=== PATIENT | female | born 1965 | race Caucasian/White ===

== ENCOUNTER 2017-04-14 07:23 | Day surgery (SDC) | payer OTHER ==
[2017-04-11 11:43] VITALS: BMI 22.2
[2017-04-14] VITALS (29 sets, daily range): BP systolic 80–126; BP diastolic 50–89; PULSE 54–80; RESP 0–28; Ht 157.5 cm; Wt 53.0 kg
[~2017-04-14] VITALS: Ht 157.5 cm; Wt 53.0 kg
[~2017-04-14 07:23] MED LIST: CEFAZOLIN 2 GM/50 ML (PMX) 50 ML IVPB ONE; SOD CHLORIDE 0.9% 1,000 ML IV SCH
[2017-04-14] MEDS ORDERED: AMLO-218 PO (08:15)
[2017-04-14] MEDS ORDERED: METO25TA7 PO (08:15)
--- NOTE | 2017-04-14 08:27 | RADRPT ---
PROCEDURE: XR Chest. CLINICAL INDICATION: Preoperative TECHNIQUE: Single frontal view of the chest was obtained COMPARISON: None FINDINGS: The heart and mediastinum are within normal limits. The lungs are clear. There is no pleural effusion or pneumothorax. RPTAT: AA IMPRESSION: No acute disease. .Vazquez Bull MD, Date Time Electronically viewed and signed by .Vazquez Bull MD, on 04/14/2017 08:27 .S/
[2017-04-14] MEDS ORDERED: FENTAnyl 50 MCG/ML VIAL ONE (08:58)
[2017-04-14] MEDS ORDERED: CEFAZOLIN 1 GM INJ ONE (08:58)
[2017-04-14] MEDS ORDERED: ROCURONIUM 50 MG INJ ONE (08:58)
[2017-04-14] MEDS ORDERED: MIDAZOLAM 1 MG/ML 2 ML INJ ONE (08:58)
[2017-04-14] MEDS ORDERED: PROPOFOL 20 ML ONE (08:58)
[2017-04-14] MEDS ORDERED: hydrALAzine 20 MG INJ IV PRN (09:30)
[2017-04-14] MEDS ORDERED: BUPIVACAINE 0.25% (MPF) 30 ML INJ INJ ONE (09:30)
[2017-04-14] MEDS ORDERED: MEPERIDINE 25 MG INJ IV PRN (09:30)
[2017-04-14] MEDS ORDERED: OXYCODONE/ACETAMINOPHEN (5/325) TAB PO PRN ×2 (09:30)
[2017-04-14] MEDS ORDERED: EPHEDrine SULFATE 50 MG/5 ML SYG IV PRN (09:30)
[2017-04-14] MEDS ORDERED: DIPHENHYDRAMINE 50 MG INJ IV PRN (09:30)
[2017-04-14] MEDS ORDERED: HYDROmorphONE (0.2 MG/ML) 10ML SYG IV PRN ×3 (09:30)
[2017-04-14] MEDS ORDERED: LABETALOL HCL 20MG INJ IV PRN (09:30)
[2017-04-14] MEDS ORDERED: FENTAnyl 50 MCG/ML VIAL IV PRN ×3 (09:30)
[2017-04-14] MEDS ORDERED: BUPIVACAINE 0.25% (MPF) 30 ML INJ ONE (09:34)
[2017-04-14] MEDS ORDERED: ACETAMINOPHEN 1000MG/100ML IV 100 ML ONE (09:58)
[2017-04-14] MEDS ORDERED: SUGAMMADEX SODIUM 200 MG/2 ML VIAL IV ONE (09:58)
[2017-04-14] MEDS ORDERED: METOCLOPRAMIDE 10 MG INJ ONE (09:58)
[2017-04-14] MEDS ORDERED: ONDANSETRON 4 MG INJ ONE (09:58)
[2017-04-14] MEDS ORDERED: KETOROLAC 30 MG INJ ONE (09:58)
[2017-04-14] MEDS ORDERED: DEXAMETHASONE 4 MG/ML 1 ML INJ ONE (09:58)
--- NOTE | 2017-04-14 10:29 | OPR ---
Date/Time of Note Date/Time of Note DATE: 04/14/17 TIME: 10:22 Operative Report Procedure Date: Apr 14, 2017 Preoperative Diagnosis internal and externa hemorrhoids perianal mass anal fissure Postoperative Diagnosis same Operation Performed 1. proctoplasty for prolapse of mucosal membrane cpt code 66525 2. ligation of multiple internal hemorrhoids cpt code 04974 3. anterior perianal mass excision 1 cm mass 4. posterior anal fissurectomy 1 cm 5. rigid sigmoidoscopy 6. therapeutic injection of subcutaneous marcaine cpt code 02301 Surgeon: Ana OLSON Anesthesia Type: general Estimated Blood Loss: 0 - 10 ml's Specimens anterior perianal mass posterior anal fissure Grafts/Implants: none Complications: no Indications This is a 51-year-old female with a anterior perianal mass and a posterior anal fissure and internal/external complex hemorrhoids. She required surgical repair. Risks alternatives benefits and percent were discussed the patient. Patient expressed understanding consents to the operation. Procedure Description Patient is taken to the OR and prepped and draped in usual sterile fashion. Surgical timeout is performed. IV antibiotics are given. Rigid sigmoidoscopy was performed. There is no evidence of any masses or lesions. Prep was fair. Attention was then paid to the internal/external hemorrhoids. Using the THC device multiple [id number] 2-0 Vicryl suture is used to ligate the internal hemorrhoidal artery in a circular fashion all around anal mucosa. This is performed in multiple areas performed the multiple internal hemorrhoidal artery ligation. The proctoplasty was then performed by running the 2-0 Vicryl from proximal all the way down distally to the dentate line. This is also performed in multiple region circumferentially around the anal mucosa. Attention was then paid to the anterior perianal mass. This is resected using 15 blade and hand-held cautery for hemostasis. The posterior anal fissure was then addressed with a 15 blade and hand-held cautery and is excised. Both the wounds are cauterized until hemostasis established. The perianal mucosa is then injected with subcutaneous Marcaine and a circular fashion. There is good hemostasis. The anal canal was checked for patency manually and there is no evidence of any obstruction or stenosis. Dry dressings were applied. Ana OLSON Apr 14, 2017 10:29
[2017-04-14] MEDS ORDERED: HYDROCODONE/APAP (5/325) TAB PO ONE (10:30)
[2017-04-14] MEDS ORDERED: DOCUSATE SODIUM 250 MG CAP PO ONE (10:30)
[2017-04-14] MEDS: ONDANSETRON 4 MG INJ IV PRN ×2 (10:52→12:16)
--- NOTE | 2017-04-14 16:33 | RADRPT ---
Vent Rate: 56 bpm RR Interval: 0 msec VA Interval: 114 msec QRS Duration: 72 msec QT Interval: 460 msec QTC Interval: 443 msec P-R-T [place]: 77 - 60 - 35 degrees Sinus bradycardia Cannot rule out Anterior infarct , age undetermined Abnormal ECG Electronically Signed By: Tyron Sykes [id number]
== END 2017-04-14 16:20 | disposition home or self-care (01) ==
LOC: SDS 07:23
PROVIDERS: ATTEND Surgery
DX: K64.9 Unspecified hemorrhoids (principal); K62.0 Anal polyp; K60.2 Anal fissure, unspecified; K64.4 Residual hemorrhoidal skin tags; K64.8 Other hemorrhoids; I10 Essential (primary) hypertension
CPT/HCPCS: 45330; 46261; 71010; 84703; 88304; 88307; 93005; J0131; J0690; J1100; J1885; J2250; J2405; J2765; J3010; Z7512; Z7610

== ENCOUNTER 2017-04-17 09:54 | Inpatient (IN) | payer OTHER ==
[2017-04-17] VITALS (18 sets, daily range): BP systolic 104–134; BP diastolic 63–87; PULSE 83–104; RESP 11–27; TEMP 97.6; Ht 154.9 cm; Wt 57.9 kg
[~2017-04-17] VITALS: Ht 154.9 cm; Wt 57.9 kg
[~2017-04-17 09:54] MED LIST changes: +AMLO-218 PO; -CEFAZOLIN 2 GM/50 ML (PMX) 50 ML IVPB ONE; +METO25TA7 PO; -SOD CHLORIDE 0.9% 1,000 ML IV SCH
--- NOTE | 2017-04-17 10:33 | ERD ---
ER Documentation Chief Complaint Date/Time DATE: 04/17/17 TIME: 10:33 Chief Complaint Complains of post pain since friday HPI 51-year-old woman complains of increasing lower abdominal pain and cramping states her last bowel movement was about 3 days ago on Friday ROS All systems reviewed and are negative except as per history of present illness. Medications Home Meds Reported Medications Metoprolol Succinate* (Toprol XL*) 25 Mg Tab.sr.24h, 25 MG PO QPM, #30 TAB 04/14/17 Amlodipine Besylate* (Norvasc*) 10 Mg Tablet, 10 MG PO DAILY, TAB 04/14/17 Allergies Allergies: Coded Allergies: No Known Allergy (Unverified , 04/17/17) PMhx/Soc proctoplasty, recent internal hemorrhoid and perianal mass excision, status post rigid sigmoidoscopy and anal fissurectomy History of Surgery: Yes (l shoulder, hysterectomy) Anesthesia Reaction: No Hx Neurological Disorder: No Hx Respiratory Disorders: No Hx Cardiac Disorders: No Hx Psychiatric Problems: No Hx Miscellaneous Medical Probl: No Hx Alcohol Use: No Hx Substance Use: No Hx Tobacco Use: No Smoking Status: Never smoker FmHx Family History: No diabetes Physical Exam Vitals Vital Signs Date Time Temp Pulse Resp B/P Pulse Ox O2 Delivery O2 Flow Rate FiO2 04/17/17 12:00 83 12 116/82 100 Room Air 2.0 Nasal Cannula 04/17/17 10:00 97.6 82 29 148/107 100 Room Air 04/17/17 09:57 98.4 126 20 143/94 99 Physical Exam GENERAL: Well-developed, well-nourished, in moderate discomfort. HEENT: Moist mucous membranes, pink conjunctiva, no cervical spine tenderness or step-off deformities, no goiter, no jaundice or icterus, extraocular movements intact without pain. No submandibular induration, and no pharyngeal erythema NEURO: Alert and oriented 3, cranial nerves II through XII intact bilaterally, pupils equal round reactive to light, no focal deficits or facial asymmetry, sensation intact distally Strength 5/5 in upper and lower extremities bilaterally CARDIAC: Regular rate and rhythm, no murmurs rubs or gallops LUNGS: Clear bilaterally no wheezing crackles or stridor ABDOMEN: Lower abdominal distention, lower abdominal tenderness to touch no guarding, no rebound, lower abdominal mass palpated. EXTREMITIES: No clubbing cyanosis or edema, calves are bilaterally symmetrical, no Homans sign, no popliteal cord sign. Distal pulses equal and bilateral PSYCH: Normal affect without agitation or irritability Result Diagram: 04/17/17 1000 04/17/17 1000 Results 24 hrs Laboratory Tests Test 04/17/17 10:00 White Blood Count 11.010^3/ul Red Blood Count 4.4310^6/ul Hemoglobin 13.4g/dl Hematocrit 39.9% Mean Corpuscular Volume 90.1fl Mean Corpuscular Hemoglobin 30.2pg Mean Corpuscular Hemoglobin Concent 33.6g/dl Red Cell Distribution Width 12.9% Platelet Count 67175^3/UL Mean Platelet Volume 11.5fl Neutrophils % 76.6% Lymphocytes % 14.5% Monocytes % 7.4% Eosinophils % 1.1% Basophils % 0.2% Nucleated Red Blood Cells % 0.0/100WBC Neutrophils # (Manual) 8.510^3/ul Lymphocytes # 1.610^3/ul Monocytes # 0.810^3/ul Eosinophils # 0.110^3/ul Basophils # 0.010^3/ul Nucleated Red Blood Cells # 0.010^3/ul Prothrombin Time 13.2Sec Prothrombin Time Ratio 1.0 INR International Normalized Ratio 1.00 Sodium Level 151mmol/L Potassium Level 3.5mmol/L Chloride Level 100mmol/L Carbon Dioxide Level 26mmol/L Anion Gap 29 Blood Urea Nitrogen 9mg/dl Creatinine 1.22mg/dl Glucose Level 96mg/dl Calcium Level 9.8mg/dl Total Bilirubin 0.7mg/dl Direct Bilirubin 0.00mg/dl Indirect Bilirubin 0.7mg/dl Aspartate Amino Transf (AST/SGOT) 25IU/L Alanine Aminotransferase (ALT/SGPT) 15IU/L Alkaline Phosphatase 102IU/L Total Protein 8.7g/dl Albumin 4.6g/dl Globulin 4.10g/dl Albumin/Globulin Ratio 1.12 Lipase 12U/L Current Medications Medications (Trade) Dose Ordered Sig/Herber Route PRN Reason Start Time Stop Time Status Last Admin Dose Admin Sodium Chloride (NS) 1,000 ml @ 1,000 mls/hr Q1H STAT IV 04/17/17 10:38 04/17/17 11:37 DC 8/31/17 10:53 Hydromorphone HCl (Dilaudid) 1 mg ONCE STAT IV 04/17/17 10:38 04/17/17 10:39 DC 04/17/17 10:53 Ondansetron HCl (Zofran Inj) 4 mg ONCE STAT IV 04/17/17 10:38 04/17/17 10:39 DC 04/17/17 10:53 Polyethylene Glycol/ Electrolytes (Golytely) 4,000 ml ONCE ONCE PO 04/17/17 13:00 04/17/17 13:01 DC 04/17/17 13:37 Procedures/MDM IV line was established patient was placed on patient monitor rhythm strip revealed a sinus rhythm at about 80 bpm with upright P and T waves. Patient was afebrile. I administered 1 L normal saline intravenously, hydromorphone 1 mg IV and Zofran 4 mg IV with control of her pain. CT scan of the abdomen Patient received 4 L of GoLYTELY, no bowel movement yet. Patient will be admitted to Dr. Lucas, pending OR decompactionand pelvis Revealed pseudoobstruction with massive stool impaction in the distal colon. No acute infectious pathology or perforation noted. Please refer to radiologist dictation for full report. I spoke to the patient's surgeon Dr. Lucas regarding the patient's CT scan findings and symptomatology, he recommended GoLYTELY, if patient has a bowel movement she can be managed as an outpatient although if she remains constipated /obstipated she will go to the OR. CBC and electrolytes were normal, liver function tests normal, coagulation profile normal. Patient was given 4 L of GoLYTELY and remains constipated, she will be admitted to Dr. Lucas to undergo OR decompaction Departure Diagnosis: Primary Impression: Large bowel obstruction Condition: DANIEL Jackson MD Apr 17, 2017 10:33
[2017-04-17] MEDS ORDERED: SOD CHLORIDE 0.9% 1,000 ML IV STA (10:38)
[2017-04-17] MEDS ORDERED: ONDANSETRON 4 MG INJ IV STA (10:38)
[2017-04-17] MEDS ORDERED: HYDROmorphONE 1 MG/ML SYG IV STA ×2 (10:38→14:57)
[2017-04-17 11:50] LABS: BASOPHILS % 0.2 % (0.0-2.0); EOSINOPHILS # 0.1 10^3/ul (0.0-0.5); EOSINOPHILS % 1.1 % (0.0-7.0); HEMATOCRIT 39.9 % (37.0-47.0); HEMOGLOBIN 13.4 g/dl (12.0-16.0); LYMPHOCYTES # 1.6 10^3/ul (0.8-2.9); LYMPHOCYTES % 14.5 % (15.0-51.0); MEAN CORPUSCULAR HEMOGLOBIN 30.2 pg (29.0-33.0); MEAN CORPUSCULAR HGB CONC 33.6 g/dl (32.0-37.0); MEAN CORPUSCULAR VOLUME 90.1 fl (82.0-101.0); MEAN PLATELET VOLUME 11.5 fl (7.4-10.4); MONOCYTE # 0.8 10^3/ul (0.3-0.9); MONOCYTES % 7.4 % (0.0-11.0); NEUTROPHILS % 76.6 % (39.0-77.0); PLATELET COUNT 247 10^3/UL (140-415); RED BLOOD COUNT 4.43 10^6/ul (4.20-5.40); RED CELL DISTRIBUTION WIDTH 12.9 % (11.5-14.5)
--- NOTE | 2017-04-17 11:52 | RADRPT ---
PROCEDURE: CT Abdomen and Pelvis without contrast. CLINICAL INDICATION: Abdominal pelvic pain and distension. Bleeding. TECHNIQUE: CT scan of the abdomen and pelvis without contrast was performed on a multidetector hig h-resolution CT scanner. The patient was scanned without intravenous contrast. Coronal and sagittal reformatted images were obtained from the axial source images. Images were reviewed on a high-resol SLID PACS workstation. The total exam CTDI equals 5.34 mGy and the total exam DLP equals 301.86 mGy -cm. One or more of the following dose reduction techniques were used: - Automated exposure control. - Adjustment of the mA and/or kV according to patient size. - Use of iterative reconstruction technique. COMPARISON: None. FINDINGS: CT abdomen: The lung bases are clear. The heart size is normal, without pericardial thickening or effusion. Th e liver is normal in size and density without focal mass or intrahepatic biliary dilatation. The sp merline is normal in size and homogeneous in density. The stomach is partially collapsed, but is gross ly unremarkable. The pancreas as visualized is normal. The gallbladder and biliary tree are unrema rkable and there is no evidence for biliary dilatation. The adrenal glands are symmetric and normal . The kidneys are symmetrically unremarkable as well. No renal calculus or obstructive uropathy or mass lesion is seen. The aorta is of normal caliber. Aortic vascular calcifications are present. There is no retroperit delgadillo lymphadenopathy. The leonora hepatis region is clear. Severe distension and dilatation of all of the loops of colon is identified with a large amount of fecal material and stool throughout. CT pelvis: The small bowel loops situated within the pelvis are unremarkable. The pelvic organs are normal. T he pelvic sidewalls and inguinal regions are clear. The sigmoid colon and rectum are remarkable for severe colonic constipation throughout the sigmoid colon and rectum. A very large amount of stool seen within the rectal vault consistent with high-grade constipation/obstipation. This is causing a n obstruction like pattern (pseudo-obstruction) secondary to the high-grade constipation. Rectal wa ll thickening with surrounding edema is seen consistent with significant stercoral proctitis. No mas s or adenopathy is seen. Minimal layering free fluid is present, with edema in the lower posterior p resacral space. No acute inflammation is identified at this time. The surrounding osseous structures are remarkable for degenerative spondylosis of the spine. No ost eolytic or osteoblastic lesion is detected. IMPRESSION: 1. Massive stool retention within the lower sigmoid colon and rectum with high-grade constipation/o bstipation and associated stercoral proctitis. 2. Proximal "pseudo-obstruction" of the colon secondary to the high-grade distal colonic constipati on and stercoral proctitis. RPTAT: HMJB .Jay Madera MD, Date Time Electronically viewed and signed by .Jay Madera MD, on 04/17/2017 11:52 .B/
[2017-04-17 12:42] LABS: PROTIME 13.2 Sec (12.2-14.2)
[2017-04-17 12:45] LABS: ALBUMIN 4.6 g/dl (3.3-4.9); ALBUMIN/GLOBULIN RATIO 1.12; BILIRUBIN,INDIRECT 0.7 mg/dl (0-1.1); BILIRUBIN,TOTAL 0.7 mg/dl (0.2-1.3); CALCIUM 9.8 mg/dl (8.4-10.2); CREATININE 1.22 mg/dl (0.44-1.00); POTASSIUM 3.5 mmol/L (3.5-5.1); TOTAL PROTEIN 8.7 g/dl (6.1-8.1)
[2017-04-17] MEDS ORDERED: PEG/ELECTROLYTES 4L BTL PO ONE (13:00)
--- NOTE | 2017-04-17 16:29 | HP ---
Date/Time of Note Date/Time of Note DATE: 04/17/17 TIME: 16:24 Assessment/Plan VTE Prophylaxis VTE Prophylaxis Intervention: ambulation, SCD's Lines/Catheters IV [facility]from [facility] Saline Lock Assessment/Plan Chief Complaint/Hosp Course 51-year-old female presenting with obstipation after hemorrhoidal surgical intervention. She had a course of GoLYTELY without improvement in the ER. She will be taken to the OR for manual disimpaction and anal dilatation. Problems: Assessment/Plan Plan is for operative manual disimpaction and dilatation. HPI/ROS Admit Date/Time Admit Date/Time Hx of Present Illness This is a 51-year-old female with increasing abdominal pain and cramping. She has been experiencing obstipation for the past 3 days. She underwent hemorrhoidal surgery approximately 3 days ago. She has been taking pain medication however she has not had a good bowel movement recently. CT scan showed obstipation with stool in the colon. In the ER she had GoLYTELY and did not have any major bowel movements. General surgery was consulted for manual disimpaction. ROS All review of systems are negative except for what was mentioned before in the HPI. PMH/Family/Social Past Surgical History proctoplasty recent internal hemorrhoid and perianal mass excision and rigid endoscopy and anal fissurectomy Family History Significant Family History: no pertinent family hx Social History Alcohol Use: none Smoking Status: Never smoker Drug Use: none Exam/Review of Systems Vital Signs Vitals Vital Signs Date Time Temp Pulse Resp B/P Pulse Ox O2 Delivery O2 Flow Rate FiO2 04/17/17 12:00 83 12 116/82 100 Room Air 2.0 Nasal Cannula 04/17/17 10:00 97.6 Exam Constitutional: alert, oriented Psych: nl mood/affect, no complaints Head: atraumatic, normocephalic Eyes: EOMI, nl conjunctiva, nl lids ENMT: nl external ears & nose, nl lips & teeth, nl nasal mucosa & septum Neck: non-tender, supple Respiratory: clear to auscultation Cardiovascular: regular rate and rhythm Gastrointestinal: distended Extremities: normal pulses Labs Result Diagram: 04/17/17 1000 04/17/17 1000 Ana OLSON Apr 17, 2017 16:29
[2017-04-17] MEDS ORDERED: LIDOCAINE 2% (SDV) 5 ML INJ ONE (17:53)
[2017-04-17] MEDS ORDERED: MIDAZOLAM 1 MG/ML 2 ML INJ ONE (17:53)
[2017-04-17] MEDS ORDERED: SUCCINYLCHOLINE CHLORIDE 100 MG/5 ML SYG IV ONE (17:53)
[2017-04-17] MEDS ORDERED: PROPOFOL 20 ML ONE (17:53)
[2017-04-17] MEDS ORDERED: FENTAnyl 50 MCG/ML VIAL ONE (17:58)
[2017-04-17] MEDS ORDERED: PHENYLephrine (100 MCG/ML) 5ML SYG ONE (18:06)
[2017-04-17] MEDS ORDERED: metroNIDAZOLE 500 MG/NS (PMX) 100 ML IVPB ONE (18:23)
[2017-04-17] MEDS ORDERED: CEFAZOLIN 1 GM INJ ONE (18:23)
[2017-04-17] MEDS ORDERED: FAMOTIDINE 20 MG INJ ONE (18:24)
[2017-04-17] MEDS ORDERED: ONDANSETRON 4 MG INJ ONE (18:24)
[2017-04-17] MEDS ORDERED: DEXAMETHASONE 4 MG/ML 1 ML INJ ONE (18:24)
--- NOTE | 2017-04-17 18:25 | OPR ---
Date/Time of Note Date/Time of Note DATE: 04/17/17 TIME: 18:23 Operative Report Procedure Date: Apr 17, 2017 Preoperative Diagnosis obstipation and nausea and vomiting Postoperative Diagnosis same Operation Performed anal dilation fecal disimpaction rigid sigmoidoscopy Surgeon: Ana OLSON Anesthesia Type: general Estimated Blood Loss: 10 - 50 ml's Specimen: none Grafts/Implants: none Complications: no Indications This is a 51-year-old female who underwent recent hemorrhoidal surgery. She has not had a bowel movement and has obstipation. She is admitted to the hospital for pseudoobstruction. Patient is taken to the OR for fecal disimpaction anal dilation rigid proctoscopy. Risks alternatives benefits and percent were discussed the patient patient expresses understanding since the operation. Procedure Description Something to the OR in usual sterile fashion surgical time was performed IV antibiotics given. Rigid proctoscopy is performed. There is no evidence of any stenosis or any other masses or lesions. Anal dilatation was performed manually with 2 fingers and fecal disimpaction was performed with Cummings retractors. Approximately 300 cc of stool was evacuated. There is good hemostasis. The operation was concluded. Ana OLSON Apr 17, 2017 18:25
[2017-04-17] MEDS ORDERED: HYDROmorphONE (0.2 MG/ML) 10ML SYG IV PRN (19:30)
[2017-04-17] MEDS ORDERED: ONDANSETRON 4 MG INJ IV PRN (19:30)
[2017-04-17] MEDS ORDERED: PROCHLORPERAZINE 10 MG INJ IV PRN (19:30)
[2017-04-17] MEDS ORDERED: FENTAnyl 50 MCG/ML VIAL IV PRN (19:30)
[2017-04-17] MEDS ORDERED: DIPHENHYDRAMINE 50 MG INJ IV PRN (19:30)
[2017-04-17 20:07] LABS: ABNORMAL IP MESSAGE 1; HEMATOCRIT 36.9 % (37.0-47.0); HEMOGLOBIN 12.3 g/dl (12.0-16.0); MEAN CORPUSCULAR HEMOGLOBIN 31.1 pg (29.0-33.0); MEAN CORPUSCULAR HGB CONC 33.3 g/dl (32.0-37.0); MEAN CORPUSCULAR VOLUME 93.2 fl (82.0-101.0); MEAN PLATELET VOLUME 10.4 fl (7.4-10.4); PLATELET COUNT 206 10^3/UL (140-415); RED BLOOD COUNT 3.96 10^6/ul (4.20-5.40); RED CELL DISTRIBUTION WIDTH 13.1 % (11.5-14.5); WHITE BLOOD COUNT 5.9 10^3/ul (4.8-10.8)
[2017-04-17 20:35] LABS: ALBUMIN 3.8 g/dl (3.3-4.9); ALBUMIN/GLOBULIN RATIO 1.08; BILIRUBIN,INDIRECT 0.6 mg/dl (0-1.1); BILIRUBIN,TOTAL 0.6 mg/dl (0.2-1.3); CREATININE 0.79 mg/dl (0.44-1.00); POTASSIUM 3.3 mmol/L (3.5-5.1); TOTAL PROTEIN 7.3 g/dl (6.1-8.1)
[2017-04-17 20:48] LABS: POSITIVE DIFF @See below
[2017-04-17] MEDS: LACTATED RINGER'S 1,000 ML IV SCH (20:55)
[2017-04-17] MEDS: AMPICILLIN/SULB 3 GM/NS (PMX) 100 ML IVPB SCH (20:56)
[2017-04-17] MEDS: metroNIDAZOLE 500 MG/NS (PMX) 100 ML IVPB SCH (21:00)
[2017-04-17 21:34] LABS: MONOCYTES % (M) 3 % (0-11); PLATELET ESTIMATE NORMAL
[2017-04-17] MEDS ORDERED: POTASSIUM CHLORIDE 250 ML IVPB ONE (23:00)
[2017-04-17] MEDS: morphine 2 MG INJ IV PRN (23:22)
[2017-04-18 02:00] VITALS: BP 112/66; RESP 85
[2017-04-18] MEDS: metroNIDAZOLE 500 MG/NS (PMX) 100 ML IVPB SCH ×3 (02:30→11:42)
--- NOTE | 2017-04-18 03:12 | HP ---
DATE OF ADMISSION: 04/17/2017 HISTORY OF PRESENT ILLNESS: The patient is a 51-year-old female who was seen by Dr. Austin Lucas a few days ago for symptomatic hemorrhoid. The patient underwent hemorrhoidectomy and was sent home. The patient was given prescription for [place]; however, the patient reported that she was only taking Motrin upon discharge due to risk of constipation. The patient reported that she had constipation issues even prior to her hemorrhoid surgery. The patient chief came to ER today with obstipation. The patient was given GoLYTELY in the ER, however, did not have any bowel movement. The patient had increasing abdominal pain and cramping and, therefore, she was taken to the OR by Dr. Lucas who had performed hemorrhoidectomy recently. The underwent anal dilatation, fecal disimpaction, and rigid sigmoidoscopy and is being admitted for further care. The patient denied any chest pain. The patient reported the abdominal pain is better, although not completely resolved. The patient did not have any chest pain or shortness of breath. No history of cough. No history of leg pain or weakness in any extremities. PAST SURGICAL HISTORY: As stated above. The patient had recent hemorrhoid surgery and also anal fissurectomy. The patient is status post left shoulder rotator cuff tear repair. Also has history of hysterectomy. ALLERGIES: NONE. MEDICATIONS: Prior to admission Motrin. FAMILY HISTORY: Noncontributory. PHYSICAL EXAMINATION: GENERAL APPEARANCE: The patient is conscious, awake, and alert. VITAL SIGNS: Vital signs in the ER stable. Blood pressure 116/52, pulse 86, respirations 12, temperature 97.6, O2 sat 100 percent on 2 L nasal cannula. HEENT: No eye discharge or redness. Extraocular movements intact. Oropharynx clear. NECK: Supple. No mass or thyromegaly. CHEST: Fairly clear. CARDIOVASCULAR: S1, S2 normal. No murmur. ABDOMEN: Soft, mildly distended and tender. EXTREMITIES: No leg edema. Pedal pulses palpable. SKIN: Without acute rash. NEUROLOGIC: The patient is awake, alert, fairly oriented. LABORATORY DATA: WBC 11, hemoglobin 15.4, platelets 247. Sodium 151, potassium 3.5, BUN 9, creatinine 1.2. IMPRESSION: Recent hemorrhoid surgery and anal fissurectomy. The patient presented with abdominal pain and obstipation, status post anal dilatation, fecal disimpaction, and rigid sigmoidoscopy. PLAN: The patient admitted on medical floor. The patient will start on clear liquid diet, which will be advanced as tolerated. The patient will be given IV fluid. The reason for hyponatremia unknown. The patient also has a creatinine of 1.2. Her previous baseline renal functions are not known. We will give a trial of IV fluids and will use SCD for DVT prophylaxis. Continue pain control and we will do follow up labs in the morning. Plan of care discussed with the patient's and Dr. Austin Lucas. If the patient continues to do well, she will be discharged home tomorrow. Dictated By: Jesus Nickerson MD /dom/patrice /Document#: [id number]
[2017-04-18] MEDS: LACTATED RINGER'S 1,000 ML IV SCH ×2 (04:21→14:21)
[2017-04-18] MEDS: morphine 2 MG INJ IV PRN ×4 (04:56→17:47)
[2017-04-18 05:45] LABS: ABNORMAL IP MESSAGE 1; BASOPHILS % 0.2 % (0.0-2.0); HEMATOCRIT 32.2 % (37.0-47.0); HEMOGLOBIN 10.8 g/dl (12.0-16.0); LYMPHOCYTES # 0.6 10^3/ul (0.8-2.9); LYMPHOCYTES % 4.9 % (15.0-51.0); MEAN CORPUSCULAR HEMOGLOBIN 30.9 pg (29.0-33.0); MEAN CORPUSCULAR HGB CONC 33.5 g/dl (32.0-37.0); MEAN PLATELET VOLUME 11.1 fl (7.4-10.4); MONOCYTE # 0.7 10^3/ul (0.3-0.9); MONOCYTES % 6.1 % (0.0-11.0); NEUTROPHILS % 88.5 % (39.0-77.0); PLATELET COUNT 185 10^3/UL (140-415); RED CELL DISTRIBUTION WIDTH 13.1 % (11.5-14.5); WHITE BLOOD COUNT 11.5 10^3/ul (4.8-10.8)
[2017-04-18 05:49] LABS: POSITIVE DIFF @See below
[2017-04-18 06:02] LABS: ADD UMIC YES; UR ASCORBIC ACID NEGATIVE (NEGATIVE); UR BILIRUBIN (Dip) NEGATIVE (NEGATIVE); UR BLOOD (Dip) NEGATIVE (NEGATIVE); UR CLARITY CLEAR (CLEAR); UR COLOR YELLOW (YELLOW); UR GLUCOSE (Dip) NEGATIVE (NEGATIVE); UR KETONES (Dip) 1+ mg/dL (NEGATIVE); UR LEUKOCYTE ESTERASE (Dip) NEGATIVE Leu/ul (NEGATIVE); UR NITRITE (Dip) NEGATIVE (NEGATIVE); UR RBC 3 /HPF (0-5); UR SPECIFIC GRAVITY (Dip) 1.015 (1.003-1.030); UR TOTAL PROTEIN (Dip) 1+ mg/dl (NEGATIVE); UR UROBILINOGEN (Dip) NEGATIVE (NEGATIVE)
[2017-04-18 06:26] LABS: ALBUMIN 3.3 g/dl (3.3-4.9); ALBUMIN/GLOBULIN RATIO 1.13; BILIRUBIN,INDIRECT 0.7 mg/dl (0-1.1); BILIRUBIN,TOTAL 0.7 mg/dl (0.2-1.3); CREATININE 0.67 mg/dl (0.44-1.00); TOTAL PROTEIN 6.2 g/dl (6.1-8.1)
[2017-04-18] MEDS: AMPICILLIN/SULB 3 GM/NS (PMX) 100 ML IVPB SCH ×4 (06:26→17:16)
[2017-04-18 08:31] VITALS: BP 139/77; RESP 22
[2017-04-18] MEDS: AMLODIPINE 10 MG TAB PO SCH (08:40)
--- NOTE | 2017-04-18 10:25 | PN ---
Date/Time of Note Date/Time of Note DATE: 04/18/17 TIME: 10:24 Assessment/Plan VTE Prophylaxis VTE Prophylaxis Intervention: SCD's Lines/Catheters IV Catheter Type (from Nrs): Peripheral IV Assessment/Plan Chief Complaint/Hosp Course 51-year-old female presenting with obstipation after hemorrhoidal surgical intervention. She had a course of GoLYTELY without improvement in the ER. She will be taken to the OR for manual disimpaction and anal dilatation. Problems: Assessment/Plan doing well and had bm ok to dc home today if patient ok Subjective 24 Hr Interval Summary Free Text/Dictation patient with fecal impaction disimpacted yesterday and had additional bm Exam/Review of Systems Vital Signs Vitals Vital Signs Date Time Temp Pulse Resp B/P Pulse Ox O2 Delivery O2 Flow Rate FiO2 04/18/17 08:31 97.4 95 22 139/77 98 04/17/17 21:00 Nasal Cannula 04/17/17 16:17 2.0 Intake and Output 04/17/17 04/17/17 04/18/17 15:00 23:00 07:00 Intake Total 600 ml 1350 ml Output Total 0 ml 900 ml Balance 600 ml 450 ml Exam abdominal exam benign, no peritoneal signs Results Result Diagram: 04/18/1751604/18/17516 Results 24 hrs Laboratory Tests Test 04/17/17 19:52 04/17/17 19:54 04/18/17 03:35 04/18/17 05:17 White Blood Count 5.9 # 11.5 #H Red Blood Count 3.96 L 3.50 L Hemoglobin 12.3 10.8 L Hematocrit 36.9 L 32.2 L Mean Corpuscular Volume 93.2 92.0 Mean Corpuscular Hemoglobin 31.1 30.9 Mean Corpuscular Hemoglobin Concent 33.3 33.5 Red Cell Distribution Width 13.1 13.1 Platelet Count 206 185 Mean Platelet Volume 10.4 11.1 H Neutrophils % 88.5 H Segmented Neutrophils % (Manual) 60 Band Neutrophils % (Manual) 32 H Lymphocytes % 4.9 L Lymphocytes % (Manual) 5 L Monocytes % 6.1 Monocytes % (Manual) 3 Eosinophils % 0.0 Basophils % 0.2 Nucleated Red Blood Cells % 0.0 0.0 Neutrophils # (Manual) 3.6 10.1 H Band Neutrophils # 1.8 H Absolute Lymphocytes (Manual) 0.2 L Lymphocytes # 0.6 L Monocytes # 0.7 Absolute Monocytes (Manual) 0.1 L Eosinophils # 0.0 Basophils # 0.0 Nucleated Red Blood Cells # 0.0 Platelet Estimate NORMAL Sodium Level 146 H 140 Potassium Level 3.3 L 4.0 Chloride Level 101 104 Carbon Dioxide Level 28 29 Anion Gap 20 #H 11 # Blood Urea Nitrogen 9 8 Creatinine 0.79 0.67 Glucose Level 125 116 Calcium Level 8.0 L 8.0 L Total Bilirubin 0.6 0.7 Direct Bilirubin 0.00 0.00 Indirect Bilirubin 0.6 0.7 Aspartate Amino Transf (AST/SGOT) 42 33 Alanine Aminotransferase (ALT/SGPT) 27 31 Alkaline Phosphatase 74 60 Total Protein 7.3 # 6.2 # Albumin 3.8 3.3 Globulin 3.50 H 2.90 Albumin/Globulin Ratio 1.08 1.13 Urine Color YELLOW Urine Clarity CLEAR Urine pH 6.0 Urine Specific [place] 1.015 Urine Ketones 1+ H Urine Nitrite NEGATIVE Urine Bilirubin NEGATIVE Urine Urobilinogen NEGATIVE Urine Leukocyte Esterase NEGATIVE Urine Microscopic RBC 3 Urine Microscopic WBC 11 H Urine Hemoglobin NEGATIVE Urine Glucose NEGATIVE Urine Total Protein 1+ H Medications Medications Current Medications Ampicillin Sodium/ Sulbactam Sodium 100 ml @ 200 mls/hr Q6 IVPB Last administered on 04/18/17 06:26; Admin Dose 200 MLS/HR; Start 04/17/17 at 20:00 Metronidazole (Flagyl 500 Mg (Pmx)) 100 ml @ 100 mls/hr Q8H IVPB Last administered on 04/18/17 05:39; Admin Dose 100 MLS/HR; Start 04/17/17 at 18:30; Stop 04/18/17 at 18:29 Morphine Sulfate (morphine) 2 mg Q2H PRN IV PAIN LEVEL 6-10 Last administered on 04/18/17 08:37; Admin Dose 2 MG; Start 04/17/17 at 18:30 Acetaminophen/ Hydrocodone Bitart 1 tab 1 tab Q6H PRN PO PAIN LEVEL 6-10; Start 04/17/17 at 18:30 Lactated Ringer's (Lr) 1,000 ml @ 100 mls/hr Q10H IV Last administered on 04/17 20:55; Admin Dose 100 MLS/HR; Start 04/17/17 at 18:21 Amlodipine Besylate (Norvasc) 10 mg DAILY PO Last administered on 04/18/17t 08: 40; Admin Dose 10 MG; Start 04/18/17 at 09:00 Metoprolol Succinate (Toprol Xl) 25 mg QPM PO ; Start 04/18/17 at 21:00 Ana OLSON Apr 18, 2017 10:25
--- NOTE | 2017-04-18 12:54 | PN ---
Date/Time of Note Date/Time of Note DATE: 04/18/17 TIME: 12:51 Assessment/Plan VTE Prophylaxis VTE Prophylaxis Intervention: SCD's Lines/Catheters IV Catheter Type (from Nrsg): Peripheral IV Assessment/Plan Assessment/Plan -abdominal pain -Constipation-status post anal dilatation, fecal disimpaction, and rigid sigmoidoscopy. - PER SURGERY - pain management -Recent hemorrhoid surgery and anal fissurectomy. Aly Fernando Subjective 24 Hr Interval Summary Constitutional: requiring IVF Exam/Review of Systems Vital Signs Vitals Vital Signs Date Time Temp Pulse Resp B/P Pulse Ox O2 Delivery O2 Flow Rate FiO2 04/18/17 08:31 97.4 95 22 139/77 98 04/17/17 21:00 Nasal Cannula 04/17/17 16:17 2.0 Intake and Output 04/17/17 04/17/17 04/18/17 15:00 23:00 07:00 Intake Total 600 ml 1350 ml Output Total 0 ml 900 ml Balance 600 ml 450 ml Results Result Diagram: 04/18/1751604/18/17516 Results 24 hrs Laboratory Tests Test 04/17/17 19:52 04/17/17 19:54 04/18/17 03:35 04/18/17 05:17 White Blood Count 5.9 # 11.5 #H Red Blood Count 3.96 L 3.50 L Hemoglobin 12.3 10.8 L Hematocrit 36.9 L 32.2 L Mean Corpuscular Volume 93.2 92.0 Mean Corpuscular Hemoglobin 31.1 30.9 Mean Corpuscular Hemoglobin Concent 33.3 33.5 Red Cell Distribution Width 13.1 13.1 Platelet Count 206 185 Mean Platelet Volume 10.4 11.1 H Neutrophils % 88.5 H Segmented Neutrophils % (Manual) 60 Band Neutrophils % (Manual) 32 H Lymphocytes % 4.9 L Lymphocytes % (Manual) 5 L Monocytes % 6.1 Monocytes % (Manual) 3 Eosinophils % 0.0 Basophils % 0.2 Nucleated Red Blood Cells % 0.0 0.0 Neutrophils # (Manual) 3.6 10.1 H Band Neutrophils # 1.8 H Absolute Lymphocytes (Manual) 0.2 L Lymphocytes # 0.6 L Monocytes # 0.7 Absolute Monocytes (Manual) 0.1 L Eosinophils # 0.0 Basophils # 0.0 Nucleated Red Blood Cells # 0.0 Platelet Estimate NORMAL Sodium Level 146 H 140 Potassium Level 3.3 L 4.0 Chloride Level 101 104 Carbon Dioxide Level 28 29 Anion Gap 20 #H 11 # Blood Urea Nitrogen 9 8 Creatinine 0.79 0.67 Glucose Level 125 116 Calcium Level 8.0 L 8.0 L Total Bilirubin 0.6 0.7 Direct Bilirubin 0.00 0.00 Indirect Bilirubin 0.6 0.7 Aspartate Amino Transf (AST/SGOT) 42 33 Alanine Aminotransferase (ALT/SGPT) 27 31 Alkaline Phosphatase 74 60 Total Protein 7.3 # 6.2 # Albumin 3.8 3.3 Globulin 3.50 H 2.90 Albumin/Globulin Ratio 1.08 1.13 Urine Color YELLOW Urine Clarity CLEAR Urine pH 6.0 Urine Specific [place] 1.015 Urine Ketones 1+ H Urine Nitrite NEGATIVE Urine Bilirubin NEGATIVE Urine Urobilinogen NEGATIVE Urine Leukocyte Esterase NEGATIVE Urine Microscopic RBC 3 Urine Microscopic WBC 11 H Urine Hemoglobin NEGATIVE Urine Glucose NEGATIVE Urine Total Protein 1+ H Medications Medications Current Medications Ampicillin Sodium/ Sulbactam Sodium 100 ml @ 200 mls/hr Q6 IVPB Last administered on 04/18/17 12:16; Admin Dose 200 MLS/HR; Start 04/17/17 at 20:00 Metronidazole (Flagyl 500 Mg (Pmx)) 100 ml @ 100 mls/hr Q8H IVPB Last administered on 04/18/17 11:42; Admin Dose 100 MLS/HR; Start 04/17/17 at 18:30; Stop 04/18/17 at 18:29 Morphine Sulfate (morphine) 2 mg Q2H PRN IV PAIN LEVEL 6-10 Last administered on 04/18/17 12:17; Admin Dose 2 MG; Start 04/17/17 at 18:30 Acetaminophen/ Hydrocodone Bitart 1 tab 1 tab Q6H PRN PO PAIN LEVEL 6-10; Start 04/17/17 at 18:30 Lactated Ringer's (Lr) 1,000 ml @ 100 mls/hr Q10H IV Last administered on 04/17 20:55; Admin Dose 100 MLS/HR; Start 04/17/17 at 18:21 Amlodipine Besylate (Norvasc) 10 mg DAILY PO Last administered on 04/18/17 08: 40; Admin Dose 10 MG; Start 04/18/17 at 09:00 Metoprolol Succinate (Toprol Xl) 25 mg QPM PO ; Start 04/18/17 at 21:00 PEBBLES CARNES Apr 18, 2017 12:54
[2017-04-18 16:07] VITALS: BP 107/70; RESP 20
[2017-04-18 20:24] VITALS: BP 103/63; RESP 18
[2017-04-18] MEDS: METOPROLOL (XL) 25 MG TAB PO SCH (21:00)
[2017-04-19] MEDS: AMPICILLIN/SULB 3 GM/NS (PMX) 100 ML IVPB SCH ×4 (00:16→18:00)
[2017-04-19] MEDS: morphine 2 MG INJ IV PRN ×5 (00:20→18:11)
[2017-04-19] MEDS: LACTATED RINGER'S 1,000 ML IV SCH ×3 (00:21→15:31)
[2017-04-19 02:30] VITALS: BP 112/68; RESP 18
[2017-04-19 06:07] LABS: BASOPHILS % 0.3 % (0.0-2.0); EOSINOPHILS # 0.2 10^3/ul (0.0-0.5); EOSINOPHILS % 2.4 % (0.0-7.0); HEMATOCRIT 29.9 % (37.0-47.0); LYMPHOCYTES # 0.7 10^3/ul (0.8-2.9); MEAN CORPUSCULAR HEMOGLOBIN 30.3 pg (29.0-33.0); MEAN CORPUSCULAR HGB CONC 33.4 g/dl (32.0-37.0); MEAN CORPUSCULAR VOLUME 90.6 fl (82.0-101.0); MEAN PLATELET VOLUME 10.9 fl (7.4-10.4); MONOCYTE # 0.5 10^3/ul (0.3-0.9); MONOCYTES % 6.3 % (0.0-11.0); NEUTROPHILS % 81.4 % (39.0-77.0); PLATELET COUNT 180 10^3/UL (140-415); RED CELL DISTRIBUTION WIDTH 12.9 % (11.5-14.5); WHITE BLOOD COUNT 7.8 10^3/ul (4.8-10.8)
[2017-04-19 06:21] LABS: CALCIUM 7.5 mg/dl (8.4-10.2); CREATININE 0.65 mg/dl (0.44-1.00)
[2017-04-19 06:24] LABS: POTASSIUM 2.9 mmol/L (3.5-5.1)
[2017-04-19 06:39] LABS: POSITIVE DIFF @See below
[2017-04-19] MEDS: POTASSIUM CHLORIDE (SR) 20 MEQ TAB PO SCH ×2 (07:03→13:42)
[2017-04-19 07:53] VITALS: BP 117/73; RESP 20
[2017-04-19] MEDS: AMLODIPINE 10 MG TAB PO SCH (09:00)
--- NOTE | 2017-04-19 10:04 | PN ---
Date/Time of Note Date/Time of Note DATE: 04/19/17 TIME: 10:03 Assessment/Plan VTE Prophylaxis VTE Prophylaxis Intervention: other Lines/Catheters IV Catheter Type (from Nrsg): Peripheral IV Urinary Cath still in place: Yes Reason Cath still needed: skin wounds contaminated by urine Assessment/Plan Chief Complaint/Hosp Course -abdominal pain -Constipation-status post anal dilatation, fecal disimpaction, and rigid sigmoidoscopy. - PER SURGERY - pain management -Recent hemorrhoid surgery and anal fissurectomy. Problems: Subjective 24 Hr Interval Summary Free Text/Dictation Patient having diarrhea has soreness in rectal area, feel weak Exam/Review of Systems Vital Signs Vitals Vital Signs Date Time Temp Pulse Resp B/P Pulse Ox O2 Delivery O2 Flow Rate FiO2 04/19/17 07:53 98.0 80 20 117/73 98 04/17/17 21:00 Nasal Cannula 04/17/17 16:17 2.0 Intake and Output 04/18/17 04/18/17 04/19/17 15:00 23:00 07:00 Intake Total 200 ml 1060 ml 1300 ml Output Total 900 ml Balance 200 ml 1060 ml 400 ml Exam Constitutional: well developed Head: atraumatic, normocephalic Neck: supple Respiratory: clear to auscultation Cardiovascular: regular rate and rhythm Gastrointestinal: non-tender, soft Extremities: normal pulses Results Result Diagram: 04/19/17 0520 04/19/17 0520 Results 24 hrs Laboratory Tests Test 04/19/17 05:20 White Blood Count 7.8 # Red Blood Count 3.30 L Hemoglobin 10.0 L Hematocrit 29.9 L Mean Corpuscular Volume 90.6 Mean Corpuscular Hemoglobin 30.3 Mean Corpuscular Hemoglobin Concent 33.4 Red Cell Distribution Width 12.9 Platelet Count 180 Mean Platelet Volume 10.9 H Neutrophils % 81.4 H Lymphocytes % 9.0 L Monocytes % 6.3 Eosinophils % 2.4 Basophils % 0.3 Nucleated Red Blood Cells % 0.0 Neutrophils # (Manual) 6.4 Lymphocytes # 0.7 L Monocytes # 0.5 Eosinophils # 0.2 Basophils # 0.0 Nucleated Red Blood Cells # 0.0 Sodium Level 139 Potassium Level 2.9 *L Chloride Level 103 Carbon Dioxide Level 29 Anion Gap 10 Blood Urea Nitrogen 6 L Creatinine 0.65 Glucose Level 82 Calcium Level 7.5 L Medications Medications Current Medications Ampicillin Sodium/ Sulbactam Sodium (Unasyn 3gm/NS (Pmx)) 100 ml @ 200 mls/hr Q6 IVPB Last administered on 04/19/17 05:35; Admin Dose 200 MLS/HR; Start 04/17 at 20:00 Morphine Sulfate (morphine) 2 mg Q2H PRN IV PAIN LEVEL 6-10 Last administered on 04/19/17 09:44; Admin Dose 2 MG; Start 04/17/17 at 18:30 Acetaminophen/ Hydrocodone Bitart 1 tab 1 tab Q6H PRN PO PAIN LEVEL 6-10; Start 04/17/17 at 18:30 Lactated Ringer's (Lr) 1,000 ml @ 100 mls/hr Q10H IV Last administered on 04:56; Admin Dose 100 MLS/HR; Start 04/17/17 at 18:21 Amlodipine Besylate (Norvasc) 10 mg DAILY PO Last administered on 04/18/17 08: 40; Admin Dose 10 MG; Start 04/18/17 at 09:00 Metoprolol Succinate (Toprol Xl) 25 mg QPM PO ; Start 04/18/17 at 21:00 Potassium Chloride (Klor-Con 20) 40 meq Q6 PO Last administered on 04/19/17 07: 03; Admin Dose 40 MEQ; Start 04/19/17 at 07:00; Stop 04/19/17 at 13:05 RASHMI MEEKS Apr 19, 2017 10:04
--- NOTE | 2017-04-19 10:38 | PQ ---
Date/Time of Note Date/Time of Note DATE: 04/19/17 TIME: 10:[address] Sosa , A review of the medical record found a need for documentation clarification. patient admitted with large bowel obstruction and found to have Na level of 151 on admission which improved with treatment. Please specify a diagnosis related to patient's Na level. Thank you Please clarify a diagnosis being treated. To facilitate accurate and complete coding, please ina ( x ) the suspected diagnosis that apply: ( ) Hypernatremia ( ) Hyponatremia ( ) Other ( ) Unable to determine Please provide your response by clicking edit document,~ making~ your choice ( x ), click ok/save and finally click sign. You may also~ document your response~ on~ your progress notes. Thank you for your time. Geremias REGALADO,CCS,CCDS [facility], [facility] Services Room # [id number] - Coding [address]~ [address] GEREMIAS WALL Apr 19, 2017 10:38
[2017-04-19 13:38] VITALS: BP 119/76; RESP 20
--- NOTE | 2017-04-19 15:47 | PN ---
Date/Time of Note Date/Time of Note DATE: 04/19/17 TIME: 15:37 Assessment/Plan VTE Prophylaxis VTE Prophylaxis Intervention: ambulation, SCD's Lines/Catheters IV Catheter Type (from Nrs): Peripheral IV Urinary Cath still in place: Yes Reason Cath still needed: urinary retention Assessment/Plan Assessment/Plan 51-year-old female originally is status post hemorrhoidectomy presented with constipation and obstipation. Taken to the OR disimpaction of the impacted stool was done plus anal dilatation digitally. Postop developed urinary retention required for insertion of Iraheta catheter. Postop day 1 still complaining of too much anal pain. Also complains of diarrhea and lower part abdominal pain. C. difficile was tested today is negative. Patient is on antibiotic to Unasyn and morphine and [place] but the pain is still is difficult to control. We will add muscle relaxant Flexeril 10 mg every 12 hours p.o. maybe will help to control the pain. We will check a CBC tomorrow morning. Subjective 24 Hr Interval Summary Free Text/Dictation Complains of too much pain in the anal area, has had 9 bowel movements today all loose diarrhea, C. difficile has been sent and it was negative. also complaints of abdominal pain. Has had urinary retention required insertion of the Iraheta catheter. Exam/Review of Systems Vital Signs Vitals Vital Signs Date Time Temp Pulse Resp B/P Pulse Ox O2 Delivery O2 Flow Rate FiO2 04/19/17 13:38 98.8 92 20 119/76 8 04/17/17 21:00 Nasal Cannula 04/17/17 16:17 2.0 Intake and Output 04/18/17 04/18/17 04/19/17 15:00 23:00 07:00 Intake Total 200 ml 1060 ml 1300 ml Output Total 900 ml Balance 200 ml 1060 ml 400 ml Exam Postop day #1, status post disimpaction of the stool from the rectum and rigid sigmoidoscopy. Lying down on the side she has difficulty laying down on the back because of the pain in the anal area. Awake alert oriented complaining of abdominal pain and anal pain. MN is not rigid is soft but is tender both lower quadrant. Perineal area was examined there is ecchymosis there is no acute bleeding. Digital exam was not possible because of the tenderness. Iraheta catheter is in place. Results Result Diagram: 04/19/17 0520 04/19/17 0520 Results 24 hrs Laboratory Tests Test 04/19/17 05:20 White Blood Count 7.8 # Red Blood Count 3.30 L Hemoglobin 10.0 L Hematocrit 29.9 L Mean Corpuscular Volume 90.6 Mean Corpuscular Hemoglobin 30.3 Mean Corpuscular Hemoglobin Concent 33.4 Red Cell Distribution Width 12.9 Platelet Count 180 Mean Platelet Volume 10.9 H Neutrophils % 81.4 H Lymphocytes % 9.0 L Monocytes % 6.3 Eosinophils % 2.4 Basophils % 0.3 Nucleated Red Blood Cells % 0.0 Neutrophils # (Manual) 6.4 Lymphocytes # 0.7 L Monocytes # 0.5 Eosinophils # 0.2 Basophils # 0.0 Nucleated Red Blood Cells # 0.0 Sodium Level 139 Potassium Level 2.9 *L Chloride Level 103 Carbon Dioxide Level 29 Anion Gap 10 Blood Urea Nitrogen 6 L Creatinine 0.65 Glucose Level 82 Calcium Level 7.5 L Medications Medications Current Medications Ampicillin Sodium/ Sulbactam Sodium (Unasyn 3gm/NS (Pmx)) 100 ml @ 200 mls/hr Q6 IVPB Last administered on 04/19/17 11:18; Admin Dose 200 MLS/HR; Start 04/17 at 20:00 Morphine Sulfate (morphine) 2 mg Q2H PRN IV PAIN LEVEL 6-10 Last administered on 04/19/17 15:25; Admin Dose 2 MG; Start 04/17/17 at 18:30 Acetaminophen/ Hydrocodone Bitart 1 tab 1 tab Q6H PRN PO PAIN LEVEL 6-10; Start 04/17/17 at 18:30 Lactated Ringer's (Lr) 1,000 ml @ 100 mls/hr Q10H IV Last administered on 15:31; Admin Dose 100 MLS/HR; Start 04/17/17 at 18:21 Amlodipine Besylate (Norvasc) 10 mg DAILY PO Last administered on 04/18/17 08: 40; Admin Dose 10 MG; Start 04/18/17 at 09:00 Metoprolol Succinate (Toprol Xl) 25 mg QPM PO ; Start 04/18/17 at 21:00 BETH MIRELES MD Apr 19, 2017 15:47
[2017-04-19 20:00] VITALS: BP 104/69; RESP 18
[2017-04-19] MEDS: METOPROLOL (XL) 25 MG TAB PO SCH (20:52)
[2017-04-19] MEDS: CYCLOBENZAPRINE 10 MG TAB PO SCH (20:52)
[2017-04-20] MEDS: AMPICILLIN/SULB 3 GM/NS (PMX) 100 ML IVPB SCH ×5 (00:43→23:19)
[2017-04-20 02:00] VITALS: BP 114/74; RESP 18
[2017-04-20] MEDS: morphine 2 MG INJ IV PRN ×4 (03:14→17:49)
[2017-04-20] MEDS: LACTATED RINGER'S 1,000 ML IV SCH ×2 (05:39→16:36)
[2017-04-20 06:15] LABS: BASOPHILS % 0.3 % (0.0-2.0); EOSINOPHILS # 0.4 10^3/ul (0.0-0.5); EOSINOPHILS % 5.9 % (0.0-7.0); HEMOGLOBIN 10.2 g/dl (12.0-16.0); LYMPHOCYTES # 1.4 10^3/ul (0.8-2.9); LYMPHOCYTES % 22.1 % (15.0-51.0); MEAN CORPUSCULAR HEMOGLOBIN 31.5 pg (29.0-33.0); MEAN CORPUSCULAR VOLUME 92.6 fl (82.0-101.0); MEAN PLATELET VOLUME 10.3 fl (7.4-10.4); MONOCYTE # 0.5 10^3/ul (0.3-0.9); MONOCYTES % 8.3 % (0.0-11.0); NEUTROPHILS % 62.7 % (39.0-77.0); PLATELET COUNT 180 10^3/UL (140-415); RED BLOOD COUNT 3.24 10^6/ul (4.20-5.40); RED CELL DISTRIBUTION WIDTH 12.8 % (11.5-14.5); WHITE BLOOD COUNT 6.1 10^3/ul (4.8-10.8)
[2017-04-20 06:28] LABS: CALCIUM 7.9 mg/dl (8.4-10.2); CREATININE 0.55 mg/dl (0.44-1.00); POTASSIUM 3.4 mmol/L (3.5-5.1)
[2017-04-20 08:07] VITALS: BP 122/76; RESP 20
[2017-04-20] MEDS: AMLODIPINE 10 MG TAB PO SCH (09:00)
[2017-04-20] MEDS: CYCLOBENZAPRINE 10 MG TAB PO SCH ×2 (09:21→20:33)
--- NOTE | 2017-04-20 10:56 | PN ---
Date/Time of Note Date/Time of Note DATE: 04/20/17 TIME: 10:55 Assessment/Plan VTE Prophylaxis VTE Prophylaxis Intervention: other Lines/Catheters IV Catheter Type (from Nrsg): Peripheral IV Urinary Cath still in place: Yes Reason Cath still needed: skin wounds contaminated by urine Assessment/Plan Chief Complaint/Hosp Course -abdominal pain -Constipation-status post anal dilatation, fecal disimpaction, and rigid sigmoidoscopy. - PER SURGERY - pain management -Recent hemorrhoid surgery and anal fissurectomy. Problems: Subjective 24 Hr Interval Summary Free Text/Dictation Patient is feeling better with pain since flexeril added. She has gotten out of bed several times yesterday. Exam/Review of Systems Vital Signs Vitals Vital Signs Date Time Temp Pulse Resp B/P Pulse Ox O2 Delivery O2 Flow Rate FiO2 04/20/17 08:07 98.5 77 20 122/76 96 04/17/17 21:00 Nasal Cannula 04/17/17 16:17 2.0 Intake and Output 04/19/17 04/19/17 04/20/17 15:00 23:00 07:00 Intake Total 2000 ml 2000 ml Output Total 1704 ml 1351 ml Balance 296 ml 649 ml Exam Constitutional: well developed Head: atraumatic, normocephalic Neck: supple Respiratory: clear to auscultation Cardiovascular: regular rate and rhythm Gastrointestinal: non-tender, soft Extremities: normal pulses Results Result Diagram: 04/20/17 0544 04/20/17 0545 Results 24 hrs Laboratory Tests Test 04/20/17 05:44 04/20/17 05:45 White Blood Count 6.1 # Red Blood Count 3.24 L Hemoglobin 10.2 L Hematocrit 30.0 L Mean Corpuscular Volume 92.6 Mean Corpuscular Hemoglobin 31.5 Mean Corpuscular Hemoglobin Concent 34.0 Red Cell Distribution Width 12.8 Platelet Count 180 Mean Platelet Volume 10.3 Neutrophils % 62.7 Lymphocytes % 22.1 Monocytes % 8.3 Eosinophils % 5.9 Basophils % 0.3 Nucleated Red Blood Cells % 0.0 Neutrophils # (Manual) 3.9 Lymphocytes # 1.4 Monocytes # 0.5 Eosinophils # 0.4 Basophils # 0.0 Nucleated Red Blood Cells # 0.0 Sodium Level 139 Potassium Level 3.4 L Chloride Level 106 Carbon Dioxide Level 28 Anion Gap 8 Blood Urea Nitrogen 3 L Creatinine 0.55 Glucose Level 83 Calcium Level 7.9 L Medications Medications Current Medications Ampicillin Sodium/ Sulbactam Sodium (Unasyn 3gm/NS (Pmx)) 100 ml @ 200 mls/hr Q6 IVPB Last administered on 04/20/17 05:37; Admin Dose 200 MLS/HR; Start 04/17 at 20:00 Morphine Sulfate (morphine) 2 mg Q2H PRN IV PAIN LEVEL 6-10 Last administered on 04/20/17 09:21; Admin Dose 2 MG; Start 04/17/17 at 18:30 Acetaminophen/ Hydrocodone Bitart 1 tab 1 tab Q6H PRN PO PAIN LEVEL 6-10; Start 04/17/17 at 18:30 Lactated Ringer's (Lr) 1,000 ml @ 100 mls/hr Q10H IV Last administered on 05:39; Admin Dose 100 MLS/HR; Start 04/17/17 at 18:21 Amlodipine Besylate (Norvasc) 10 mg DAILY PO Last administered on 04/18/17 08: 40; Admin Dose 10 MG; Start 04/18/17 at 09:00 Metoprolol Succinate (Toprol Xl) 25 mg QPM PO ; Start 04/18/17 at 21:00 Cyclobenzaprine HCl (Flexeril) 10 mg Q12 PO Last administered on 04/20/17 09:21 ; Admin Dose 10 MG; Start 04/19/17 at 21:00 RASHMI MEEKS Apr 20, 2017 10:56
--- NOTE | 2017-04-20 12:37 | PN ---
Date/Time of Note Date/Time of Note DATE: 04/20/17 TIME: 12:29 Assessment/Plan VTE Prophylaxis VTE Prophylaxis Intervention: ambulation, SCD's Lines/Catheters IV Catheter Type (from Nrsg): Peripheral IV Urinary Cath still in place: Yes Reason Cath still needed: urinary retention Assessment/Plan Assessment/Plan Postop day #2 status post disimpaction of the impacted stool from the rectum. Patient had diarrhea 9 times yesterday but today since morning no more bowel movement., Feels much better than yesterday. Abdomen is soft and nondistended. Plan: DC Iraheta catheter, start patient to on sitz bath 3 times daily, advance diet to regular. Ambulate more. Colace 100 mg twice daily. Probably will discharge patient tomorrow morning. Subjective 24 Hr Interval Summary Free Text/Dictation Feels better today, no more diarrhea, pain is better under control with Flexeril Has not been able to tolerate regular diet. Still has a Iraheta catheter. Exam/Review of Systems Vital Signs Vitals Vital Signs Date Time Temp Pulse Resp B/P Pulse Ox O2 Delivery O2 Flow Rate FiO2 04/20/17 08:07 98.5 77 20 122/76 96 04/17/17 21:00 Nasal Cannula 04/17/17 16:17 2.0 Intake and Output 04/19/17 04/19/17 04/20/17 15:00 23:00 07:00 Intake Total 2000 ml 2000 ml Output Total 1704 ml 1351 ml Balance 296 ml 649 ml Exam Awake alert oriented 3 vital signs stable. Abdomen is soft pain and tenderness is less. Results Result Diagram: 04/20/17 0544 04/20/17 0545 Results 24 hrs Laboratory Tests Test 04/20/17 05:44 04/20/17 05:45 White Blood Count 6.1 # Red Blood Count 3.24 L Hemoglobin 10.2 L Hematocrit 30.0 L Mean Corpuscular Volume 92.6 Mean Corpuscular Hemoglobin 31.5 Mean Corpuscular Hemoglobin Concent 34.0 Red Cell Distribution Width 12.8 Platelet Count 180 Mean Platelet Volume 10.3 Neutrophils % 62.7 Lymphocytes % 22.1 Monocytes % 8.3 Eosinophils % 5.9 Basophils % 0.3 Nucleated Red Blood Cells % 0.0 Neutrophils # (Manual) 3.9 Lymphocytes # 1.4 Monocytes # 0.5 Eosinophils # 0.4 Basophils # 0.0 Nucleated Red Blood Cells # 0.0 Sodium Level 139 Potassium Level 3.4 L Chloride Level 106 Carbon Dioxide Level 28 Anion Gap 8 Blood Urea Nitrogen 3 L Creatinine 0.55 Glucose Level 83 Calcium Level 7.9 L Medications Medications Current Medications Ampicillin Sodium/ Sulbactam Sodium (Unasyn 3gm/NS (Pmx)) 100 ml @ 200 mls/hr Q6 IVPB Last administered on 04/20/17 05:37; Admin Dose 200 MLS/HR; Start 04/17 at 20:00 Morphine Sulfate (morphine) 2 mg Q2H PRN IV PAIN LEVEL 6-10 Last administered on 04/20/17 09:21; Admin Dose 2 MG; Start 04/17/17 at 18:30 Acetaminophen/ Hydrocodone Bitart 1 tab 1 tab Q6H PRN PO PAIN LEVEL 6-10; Start 04/17/17 at 18:30 Lactated Ringer's (Lr) 1,000 ml @ 100 mls/hr Q10H IV Last administered on 05:39; Admin Dose 100 MLS/HR; Start 04/17/17 at 18:21 Amlodipine Besylate (Norvasc) 10 mg DAILY PO Last administered on 04/18/17 08: 40; Admin Dose 10 MG; Start 04/18/17 at 09:00 Metoprolol Succinate (Toprol Xl) 25 mg QPM PO ; Start 04/18/17 at 21:00 Cyclobenzaprine HCl (Flexeril) 10 mg Q12 PO Last administered on 04/20/17 09:21 ; Admin Dose 10 MG; Start 04/19/17 at 21:00 Docusate Sodium (Colace) 100 mg BID PO ; Start 04/20/17 at 21:00 BETH MIRELES MD Apr 20, 2017 12:37
[2017-04-20 13:38] VITALS: BP 124/67; RESP 20
[2017-04-20 20:16] VITALS: BP 125/82; RESP 18
[2017-04-20] MEDS: DOCUSATE SODIUM 100 MG CAP PO SCH (20:33)
[2017-04-20] MEDS: METOPROLOL (XL) 25 MG TAB PO SCH (20:34)
[2017-04-21 02:00] VITALS: BP 124/76; RESP 18
[2017-04-21] MEDS: AMPICILLIN/SULB 3 GM/NS (PMX) 100 ML IVPB SCH ×3 (05:47→17:57)
[2017-04-21] MEDS: LACTATED RINGER'S 1,000 ML IV SCH (05:48)
[2017-04-21 07:31] VITALS: BP 124/84; RESP 16
[2017-04-21] MEDS: DOCUSATE SODIUM 100 MG CAP PO SCH ×2 (10:01→20:29)
[2017-04-21] MEDS: AMLODIPINE 10 MG TAB PO SCH (10:01)
[2017-04-21] MEDS: CYCLOBENZAPRINE 10 MG TAB PO SCH ×2 (10:01→20:29)
[2017-04-21 10:04] VITALS: BP 134/85; PULSE 74
[2017-04-21] MEDS: HYDROCODONE/APAP (5/325) TAB PO PRN ×2 (10:15→17:57)
--- NOTE | 2017-04-21 10:24 | PN ---
Date/Time of Note Date/Time of Note DATE: 04/21/17 TIME: 10:23 Assessment/Plan VTE Prophylaxis VTE Prophylaxis Intervention: other Lines/Catheters IV Catheter Type (from Nrsg): Peripheral IV Urinary Cath still in place: Yes Reason Cath still needed: skin wounds contaminated by urine Assessment/Plan Chief Complaint/Hosp Course -abdominal pain -Constipation-status post anal dilatation, fecal disimpaction, and rigid sigmoidoscopy. - PER SURGERY - pain management -Recent hemorrhoid surgery and anal fissurectomy. -urinary obstruction - try to remove mooney catheter again Problems: Subjective 24 Hr Interval Summary Free Text/Dictation Patient's diarrhea is improving but patient is now having urinary obstruction, had to have catheter replaced last night Exam/Review of Systems Vital Signs Vitals Vital Signs Date Time Temp Pulse Resp B/P Pulse Ox O2 Delivery O2 Flow Rate FiO2 04/21/17 10:04 74 134/85 04/21/17 07:31 98.0 16 97 04/17/17 21:00 Nasal Cannula 04/17/17 16:17 2.0 Intake and Output 04/20/17 04/20/17 04/21/17 15:00 23:00 07:00 Intake Total 100 ml 2120 ml 1800 ml Output Total 1650 ml 1500 ml 1600 ml Balance -1550 ml 620 ml 200 ml Exam Constitutional: well developed Head: atraumatic, normocephalic Neck: supple Respiratory: clear to auscultation Cardiovascular: regular rate and rhythm Gastrointestinal: non-tender, soft Extremities: normal pulses Results Result Diagram: 04/20/17 0544 04/20/17 0545 Medications Medications Current Medications Ampicillin Sodium/ Sulbactam Sodium (Unasyn 3gm/NS (Pmx)) 100 ml @ 200 mls/hr Q6 IVPB Last administered on 04/21/17 05:47; Admin Dose 200 MLS/HR; Start 04/17 at 20:00 Morphine Sulfate (morphine) 2 mg Q2H PRN IV PAIN LEVEL 6-10 Last administered on 04/20/17 17:49; Admin Dose 2 MG; Start 04/17/17 at 18:30 Acetaminophen/ Hydrocodone Bitart 1 tab 1 tab Q6H PRN PO PAIN LEVEL 6-10 Last administered on 04/21/17 10:15; Admin Dose 1 TAB; Start 04/17/17 at 18:30 Lactated Ringer's (Lr) 1,000 ml @ 100 mls/hr Q10H IV Last administered on 05:48; Admin Dose 100 MLS/HR; Start 04/17/17 at 18:21 Amlodipine Besylate (Norvasc) 10 mg DAILY PO Last administered on 04/21/17 10: 01; Admin Dose 10 MG; Start 04/18/17 at 09:00 Metoprolol Succinate (Toprol Xl) 25 mg QPM PO ; Start 04/18/17 at 21:00 Cyclobenzaprine HCl (Flexeril) 10 mg Q12 PO Last administered on 04/21/17 10:01 ; Admin Dose 10 MG; Start 04/19/17 at 21:00 Docusate Sodium (Colace) 100 mg BID PO Last administered on 04/21/17 10:01; Admin Dose 100 MG; Start 04/20/17 at 21:00 RASHMI MEEKS Apr 21, 2017 10:24
[2017-04-21] MEDS: MINERAL OIL 30ML CUP PO SCH ×2 (13:52→22:14)
[2017-04-21 13:59] VITALS: BP 129/78; RESP 20
--- NOTE | 2017-04-21 15:35 | RADRPT ---
PROCEDURE: XR Abdomen 1 View. CLINICAL INDICATION: Abdominal pain. TECHNIQUE: AP abdomen x-ray. COMPARISON: CT April 17, 2017 FINDINGS: [id number] amount of formed stool is identified in the left colon. Scattered gas is seen wit hin a few nondilated loops of small bowel. No dilated loops of small bowel are observed. No organom egaly is identified. No abnormal calculi are observed. The osseous structures are intact. IMPRESSION: [id number] amount of formed stool in the left colon. Finding may reflect constipation. If further characterization of the abdomen is needed CT should be considered. RPTAT: AA .Davi Yi MD, Date Time Electronically viewed and signed by .Davi Yi MD, MD on 04/21/2017 15:35 .P/
[2017-04-21 20:01] VITALS: BP 120/79; RESP 18
[2017-04-21] MEDS: METOPROLOL (XL) 25 MG TAB PO SCH (20:29)
[2017-04-22] MEDS: AMPICILLIN/SULB 3 GM/NS (PMX) 100 ML IVPB SCH ×4 (00:10→18:22)
[2017-04-22 02:00] VITALS: BP 131/87; RESP 18
[2017-04-22] MEDS: MINERAL OIL 30ML CUP PO SCH ×3 (05:45→22:24)
[2017-04-22 05:52] LABS: HEMATOCRIT 32.5 % (37.0-47.0); HEMOGLOBIN 11.1 g/dl (12.0-16.0); MEAN CORPUSCULAR HGB CONC 34.2 g/dl (32.0-37.0); MEAN CORPUSCULAR VOLUME 90.8 fl (82.0-101.0); MEAN PLATELET VOLUME 9.8 fl (7.4-10.4); PLATELET COUNT 263 10^3/UL (140-415); RED BLOOD COUNT 3.58 10^6/ul (4.20-5.40); RED CELL DISTRIBUTION WIDTH 12.4 % (11.5-14.5); WHITE BLOOD COUNT 5.1 10^3/ul (4.8-10.8)
[2017-04-22 05:58] LABS: POSITIVE DIFF @See below
[2017-04-22 06:33] LABS: ANION GAP 12 (8-16); CALCIUM 8.8 mg/dl (8.4-10.2); CARBON DIOXIDE 29 mmol/L (21-31); CHLORIDE 106 mmol/L (97-110); CREATININE 0.65 mg/dl (0.44-1.00); GLUCOSE 82 mg/dl (70-220); POTASSIUM 3.4 mmol/L (3.5-5.1); SODIUM 144 mmol/L (135-144)
[2017-04-22 06:35] LABS: BLOOD UREA NITROGEN < 2 mg/dl (7-20)
[2017-04-22 07:55] VITALS: BP 133/84; RESP 20
[2017-04-22] MEDS: DOCUSATE SODIUM 100 MG CAP PO SCH ×2 (08:11→20:44)
[2017-04-22] MEDS: CYCLOBENZAPRINE 10 MG TAB PO SCH ×2 (08:11→20:44)
[2017-04-22] MEDS: HYDROCODONE/APAP (5/325) TAB PO PRN ×2 (08:11→14:31)
[2017-04-22] MEDS: AMLODIPINE 10 MG TAB PO SCH (08:12)
[2017-04-22 10:06] LABS: ANISOCYTOSIS 1+ (0-0); EOSINOPHILS % (M) 5 % (0-7); GIANT THROMBO% (M) 1 % (0-0); MONOCYTES % (M) 10 % (0-11); MYELOCYTES % (M) 2 % (0-0); PLATELET ESTIMATE NORMAL; REACTIVE LYMPHOCYTES% (M) 1 % (0-0)
[2017-04-22] MEDS ORDERED: POTASSIUM CHLORIDE (SR) 10 MEQ TAB PO ONE (14:00)
--- NOTE | 2017-04-22 14:52 | PN ---
Date/Time of Note Date/Time of Note DATE: 04/22/17 TIME: 14:50 Assessment/Plan VTE Prophylaxis VTE Prophylaxis Intervention: SCD's Lines/Catheters IV [facility]from [facility] Saline Lock Urinary Cath still in place: No Assessment/Plan Chief Complaint/Hosp Course 51-year-old female presenting with obstipation after hemorrhoidal surgical intervention. She had a course of GoLYTELY without improvement in the ER. She will be taken to the OR for manual disimpaction and anal dilatation. Problems: Assessment/Plan doing well, possible dc tomorrow Subjective 24 Hr Interval Summary Free Text/Dictation doing well, having bowel movements, Exam/Review of Systems Vital Signs Vitals Vital Signs Date Time Temp Pulse Resp B/P Pulse Ox O2 Delivery O2 Flow Rate FiO2 04/22/17 07:55 97.7 77 20 133/84 99 Intake and Output 04/21/17 04/21/17 04/22/17 15:00 23:00 07:00 Intake Total 600 ml 1200 ml 700 ml Output Total 2200 ml Balance -1600 ml 1200 ml 700 ml Exam decreased stomach distention Results Result Diagram: 04/22/17 0508 04/22/17 0508 Results 24 hrs Laboratory Tests Test 04/22/17 05:08 White Blood Count 5.1 Red Blood Count 3.58 L Hemoglobin 11.1 L Hematocrit 32.5 L Mean Corpuscular Volume 90.8 Mean Corpuscular Hemoglobin 31.0 Mean Corpuscular Hemoglobin Concent 34.2 Red Cell Distribution Width 12.4 Platelet Count 263 # Mean Platelet Volume 9.8 Neutrophils % Segmented Neutrophils % (Manual) 41 Band Neutrophils % (Manual) 3 Lymphocytes % Lymphocytes % (Manual) 38 Reactive Lymphocytes % (Manual) 1 H Monocytes % Monocytes % (Manual) 10 Eosinophils % Eosinophils % (Manual) 5 Basophils % Myelocytes % (Manual) 2 H Nucleated Red Blood Cells % 0.0 Neutrophils # (Manual) 2.1 Band Neutrophils # 0.1 Absolute Lymphocytes (Manual) 1.9 Lymphocytes # Reactive Lymphocytes # 0.0 Monocytes # Absolute Monocytes (Manual) 0.5 Eosinophils # Basophils # Myelocytes # 0.1 H Nucleated Red Blood Cells # Thrombocytosis 1 H Platelet Estimate NORMAL Anisocytosis 1+ Sodium Level 144 Potassium Level 3.4 L Chloride Level 106 Carbon Dioxide Level 29 Anion Gap 12 Blood Urea Nitrogen < 2 L Creatinine 0.65 Glucose Level 82 Calcium Level 8.8 Medications Medications Current Medications Ampicillin Sodium/ Sulbactam Sodium (Unasyn 3gm/NS (Pmx)) 100 ml @ 200 mls/hr Q6 IVPB Last administered on 04/22/17 14:15; Admin Dose 200 MLS/HR; Start 04/17 at 20:00 Morphine Sulfate (morphine) 2 mg Q2H PRN IV PAIN LEVEL 6-10 Last administered on 04/20/17 17:49; Admin Dose 2 MG; Start 04/17/17 at 18:30 Acetaminophen/ Hydrocodone Bitart ([employer] (5/325)) 1 tab Q6H PRN PO PAIN LEVEL 6 -10 Last administered on 04/22/17 14:31; Admin Dose 1 TAB; Start 04/17/17 at 18: 30 Amlodipine Besylate (Norvasc) 10 mg DAILY PO Last administered on 04/22/17 08: 12; Admin Dose 10 MG; Start 04/18/17 at 09:00 Metoprolol Succinate (Toprol Xl) 25 mg QPM PO Last administered on 04/21/17 20: 29; Admin Dose 25 MG; Start 04/18/17 at 21:00 Cyclobenzaprine HCl (Flexeril) 10 mg Q12 PO Last administered on 04/22/17 08:11 ; Admin Dose 10 MG; Start 04/19/17 at 21:00 Docusate Sodium (Colace) 100 mg BID PO Last administered on 04/22/17 08:11; Admin Dose 100 MG; Start 04/20/17 at 21:00 Mineral Oil (Mineral Oil) 30 ml Q8 PO Last administered on 04/22/17 14:16; Admin Dose 30 ML; Start 04/21/17 at 14:00 Ana OLSON Apr 22, 2017 14:52
[2017-04-22 15:47] VITALS: BP 111/65; RESP 18
[2017-04-22] MEDS ORDERED: VITAMIN A & D 5 GM OINT PACKET TOP ONE (16:45)
[2017-04-22 20:09] VITALS: BP 122/77; RESP 20
[2017-04-22] MEDS: METOPROLOL (XL) 25 MG TAB PO SCH (20:44)
[2017-04-23] MEDS: AMPICILLIN/SULB 3 GM/NS (PMX) 100 ML IVPB SCH ×4 (00:03→17:26)
[2017-04-23] MEDS: HYDROCODONE/APAP (5/325) TAB PO PRN ×3 (00:08→19:46)
[2017-04-23 02:09] VITALS: BP 114/70; RESP 20
[2017-04-23 05:51] LABS: BASOPHILS % 0.5 % (0.0-2.0); EOSINOPHILS # 0.2 10^3/ul (0.0-0.5); EOSINOPHILS % 3.8 % (0.0-7.0); HEMATOCRIT 32.9 % (37.0-47.0); HEMOGLOBIN 11.2 g/dl (12.0-16.0); LYMPHOCYTES # 1.9 10^3/ul (0.8-2.9); LYMPHOCYTES % 30.4 % (15.0-51.0); MEAN CORPUSCULAR HEMOGLOBIN 30.5 pg (29.0-33.0); MEAN CORPUSCULAR VOLUME 89.6 fl (82.0-101.0); MEAN PLATELET VOLUME 9.4 fl (7.4-10.4); MONOCYTE # 0.5 10^3/ul (0.3-0.9); MONOCYTES % 7.9 % (0.0-11.0); NEUTROPHILS % 55.9 % (39.0-77.0); PLATELET COUNT 292 10^3/UL (140-415); RED BLOOD COUNT 3.67 10^6/ul (4.20-5.40); RED CELL DISTRIBUTION WIDTH 12.3 % (11.5-14.5); WHITE BLOOD COUNT 6.1 10^3/ul (4.8-10.8)
[2017-04-23] MEDS: MINERAL OIL 30ML CUP PO SCH ×3 (06:02→21:05)
[2017-04-23 06:31] LABS: CALCIUM 8.8 mg/dl (8.4-10.2); CREATININE 0.6 mg/dl (0.44-1.00); POTASSIUM 3.3 mmol/L (3.5-5.1)
[2017-04-23 07:44] VITALS: BP 152/101; RESP 22
[2017-04-23] MEDS ORDERED: POTASSIUM CHLORIDE 30 MEQ in DEXTROSE 5% 250 ML IVPB ONE (08:30)
[2017-04-23] MEDS: CYCLOBENZAPRINE 10 MG TAB PO SCH ×2 (09:19→21:01)
[2017-04-23] MEDS: DOCUSATE SODIUM 100 MG CAP PO SCH ×2 (09:19→21:01)
[2017-04-23] MEDS: AMLODIPINE 10 MG TAB PO SCH (09:20)
[2017-04-23] MEDS: POTASSIUM CHLORIDE 30 MEQ in SOD CHLORIDE 0.9% 150 ML IVPB SCH ×2 (09:20→13:50)
[2017-04-23] MEDS: BISACODYL (EC) 5 MG TAB PO SCH ×2 (09:20→21:01)
[2017-04-23] MEDS: POTASSIUM CHLORIDE 40 MEQ in SOD CHLORIDE 0.45% 980 ML IV SCH ×2 (09:21→22:30)
--- NOTE | 2017-04-23 12:38 | PN ---
Date/Time of Note Date/Time of Note DATE: 04/23/17 TIME: 12:36 Assessment/Plan VTE Prophylaxis VTE Prophylaxis Intervention: SCD's Lines/Catheters IV Catheter Type (from Nrs): Saline Lock Urinary Cath still in place: Yes Reason Cath still needed: urinary retention Assessment/Plan Chief Complaint/Hosp Course 51-year-old female presenting with obstipation after hemorrhoidal surgical intervention. She had a course of GoLYTELY without improvement in the ER. She will be taken to the OR for manual disimpaction and anal dilatation. Problems: Assessment/Plan additional episode of urinary retention mooney placed urology consult pending from my perspective can dc home with mooney bag tomorrow and will remove in one week Subjective 24 Hr Interval Summary Free Text/Dictation had another episode of urinary retention, mooney placed, no had a bm Exam/Review of Systems Vital Signs Vitals Vital Signs Date Time Temp Pulse Resp B/P Pulse Ox O2 Delivery O2 Flow Rate FiO2 04/23/17 07:44 98.6 104 22 152/101 99 Intake and Output 04/22/17 04/22/17 04/23/17 15:00 23:00 07:00 Intake Total 100 ml 1380 ml 800 ml Balance 100 ml 1380 ml 800 ml Exam abd soft nontender Results Result Diagram: 04/23/17 0529 04/23/17 0529 Results 24 hrs Laboratory Tests Test 04/23/17 05:29 White Blood Count 6.1 Red Blood Count 3.67 L Hemoglobin 11.2 L Hematocrit 32.9 L Mean Corpuscular Volume 89.6 Mean Corpuscular Hemoglobin 30.5 Mean Corpuscular Hemoglobin Concent 34.0 Red Cell Distribution Width 12.3 Platelet Count 292 Mean Platelet Volume 9.4 Neutrophils % 55.9 Lymphocytes % 30.4 Monocytes % 7.9 Eosinophils % 3.8 Basophils % 0.5 Nucleated Red Blood Cells % 0.0 Neutrophils # (Manual) 3.4 Lymphocytes # 1.9 Monocytes # 0.5 Eosinophils # 0.2 Basophils # 0.0 Nucleated Red Blood Cells # 0.0 Sodium Level 143 Potassium Level 3.3 L Chloride Level 107 Carbon Dioxide Level 27 Anion Gap 12 Blood Urea Nitrogen 3 L Creatinine 0.60 Glucose Level 89 Calcium Level 8.8 Medications Medications Current Medications Ampicillin Sodium/ Sulbactam Sodium (Unasyn 3gm/NS (Pmx)) 100 ml @ 200 mls/hr Q6 IVPB Last administered on 04/23/17 06:02; Admin Dose 200 MLS/HR; Start 04/17 at 20:00 Morphine Sulfate (morphine) 2 mg Q2H PRN IV PAIN LEVEL 6-10 Last administered on 04/20/17 17:49; Admin Dose 2 MG; Start 04/17/17 at 18:30 Acetaminophen/ Hydrocodone Bitart ([place] (5/325)) 1 tab Q6H PRN PO PAIN LEVEL 6 -10 Last administered on 04/23/17 00:08; Admin Dose 1 TAB; Start 04/17/17 at 18: 30 Amlodipine Besylate (Norvasc) 10 mg DAILY PO Last administered on 04/23/17 09: 20; Admin Dose 10 MG; Start 04/18/17 at 09:00 Metoprolol Succinate (Toprol Xl) 25 mg QPM PO Last administered on 04/22/17 20: 44; Admin Dose 25 MG; Start 04/18/17 at 21:00 Cyclobenzaprine HCl (Flexeril) 10 mg Q12 PO Last administered on 04/23/17 09:19 ; Admin Dose 10 MG; Start 04/19/17 at 21:00 Docusate Sodium (Colace) 100 mg BID PO Last administered on 04/23/17 09:19; Admin Dose 100 MG; Start 04/20/17 at 21:00 Mineral Oil (Mineral Oil) 30 ml Q8 PO Last administered on 04/23/17 06:02; Admin Dose 30 ML; Start 04/21/17 at 14:00 Bisacodyl 10 mg 10 mg BID PO Last administered on 04/23/17 09:20; Admin Dose 10 MG; Start 04/23/17 at 09:00 Potassium Chloride 40 meq/ Sodium Chloride 1,000 ml @ 80 mls/hr [id number] IV Last administered on 04/23/17 09:21; Admin Dose 80 MLS/HR; Start 04/23/17 at 10: 00 Potassium Chloride/Sodium Chloride (KCl/NS) 165 ml @ 55 mls/hr Q3H IVPB Last administered on 04/23/17 09:20; Admin Dose 55 MLS/HR; Start 04/23/17 at 10:00; Stop 04/23/17 at 15:59 Ana OLSON Apr 23, 2017 12:38
--- NOTE | 2017-04-23 14:11 | PN ---
Date/Time of Note Date/Time of Note DATE: 04/23/17 TIME: 14:09 Assessment/Plan VTE Prophylaxis VTE Prophylaxis Intervention: other Lines/Catheters IV Catheter Type (from Nrsg): Saline Lock Urinary Cath still in place: Yes Reason Cath still needed: urinary retention Assessment/Plan Assessment/Plan -Hypokalemia- replace K, am BMP -abdominal pain -Constipation-status post anal dilatation, fecal disimpaction, and rigid sigmoidoscopy. - PER SURGERY - pain management -Recent hemorrhoid surgery and anal fissurectomy. -urinary obstruction - -sp FC placement. Marcelo Nickerson Subjective 24 Hr Interval Summary Respiratory: no complaints Cardiovascular: no complaints Gastrointestinal: other (rectal pain) Genitourinary: other (urinary retention) Exam/Review of Systems Vital Signs Vitals Vital Signs Date Time Temp Pulse Resp B/P Pulse Ox O2 Delivery O2 Flow Rate FiO2 04/23/17 07:44 98.6 104 22 152/101 99 Intake and Output 04/22/17 04/22/17 04/23/17 15:00 23:00 07:00 Intake Total 100 ml 1380 ml 800 ml Balance 100 ml 1380 ml 800 ml Exam Constitutional: alert, oriented, well developed Respiratory: clear to auscultation, normal air movement Cardiovascular: nl pulses, regular rate and rhythm Gastrointestinal: non-tender, soft Musculoskeletal: nl extremities to inspection Extremities: normal pulses Neurological: nl mental status, nl speech Skin: nl turgor Results Result Diagram: 04/23/17 0529 04/23/17 0529 Results 24 hrs Laboratory Tests Test 04/23/17 05:29 White Blood Count 6.1 Red Blood Count 3.67 L Hemoglobin 11.2 L Hematocrit 32.9 L Mean Corpuscular Volume 89.6 Mean Corpuscular Hemoglobin 30.5 Mean Corpuscular Hemoglobin Concent 34.0 Red Cell Distribution Width 12.3 Platelet Count 292 Mean Platelet Volume 9.4 Neutrophils % 55.9 Lymphocytes % 30.4 Monocytes % 7.9 Eosinophils % 3.8 Basophils % 0.5 Nucleated Red Blood Cells % 0.0 Neutrophils # (Manual) 3.4 Lymphocytes # 1.9 Monocytes # 0.5 Eosinophils # 0.2 Basophils # 0.0 Nucleated Red Blood Cells # 0.0 Sodium Level 143 Potassium Level 3.3 L Chloride Level 107 Carbon Dioxide Level 27 Anion Gap 12 Blood Urea Nitrogen 3 L Creatinine 0.60 Glucose Level 89 Calcium Level 8.8 Medications Medications Current Medications Ampicillin Sodium/ Sulbactam Sodium (Unasyn 3gm/NS (Pmx)) 100 ml @ 200 mls/hr Q6 IVPB Last administered on 04/23/17 12:54; Admin Dose 200 MLS/HR; Start 04/17 at 20:00 Morphine Sulfate (morphine) 2 mg Q2H PRN IV PAIN LEVEL 6-10 Last administered on 04/20/17 17:49; Admin Dose 2 MG; Start 04/17/17 at 18:30 Acetaminophen/ Hydrocodone Bitart ([place] (5/325)) 1 tab Q6H PRN PO PAIN LEVEL 6 -10 Last administered on 04/23/17 13:28; Admin Dose 1 TAB; Start 04/17/17 at 18: 30 Amlodipine Besylate (Norvasc) 10 mg DAILY PO Last administered on 04/23/17 09: 20; Admin Dose 10 MG; Start 04/18/17 at 09:00 Metoprolol Succinate (Toprol Xl) 25 mg QPM PO Last administered on 04/22/17 20: 44; Admin Dose 25 MG; Start 04/18/17 at 21:00 Cyclobenzaprine HCl (Flexeril) 10 mg Q12 PO Last administered on 04/23/17 09:19 ; Admin Dose 10 MG; Start 04/19/17 at 21:00 Docusate Sodium (Colace) 100 mg BID PO Last administered on 04/23/17 09:19; Admin Dose 100 MG; Start 04/20/17 at 21:00 Mineral Oil (Mineral Oil) 30 ml Q8 PO Last administered on 04/23/17 13:50; Admin Dose 30 ML; Start 04/21/17 at 14:00 Bisacodyl 10 mg 10 mg BID PO Last administered on 04/23/17 09:20; Admin Dose 10 MG; Start 04/23/17 at 09:00 Potassium Chloride 40 meq/ Sodium Chloride 1,000 ml @ 80 mls/hr [id number] IV Last administered on 04/23/17 09:21; Admin Dose 80 MLS/HR; Start 04/23/17 at 10: 00 Potassium Chloride/Sodium Chloride (KCl/NS) 165 ml @ 55 mls/hr Q3H IVPB Last administered on 04/23/17t 13:50; Admin Dose 55 MLS/HR; Start 04/23/17 at 10:00; Stop 04/23/17 at 15:59 PEBBLES CARNES Apr 23, 2017 14:11
[2017-04-23 15:49] VITALS: BP 104/66; RESP 18
[2017-04-23 19:50] VITALS: BP 105/64; RESP 18
[2017-04-23] MEDS: METOPROLOL (XL) 25 MG TAB PO SCH (21:00)
[2017-04-24] MEDS: AMPICILLIN/SULB 3 GM/NS (PMX) 100 ML IVPB SCH ×4 (01:05→17:28)
[2017-04-24 02:00] VITALS: BP 103/69; RESP 18
[2017-04-24] MEDS: HYDROCODONE/APAP (5/325) TAB PO PRN ×2 (03:45→08:36)
[2017-04-24 06:04] LABS: BASOPHILS % 0.4 % (0.0-2.0); EOSINOPHILS # 0.3 10^3/ul (0.0-0.5); EOSINOPHILS % 3.1 % (0.0-7.0); HEMATOCRIT 33.1 % (37.0-47.0); HEMOGLOBIN 11.1 g/dl (12.0-16.0); LYMPHOCYTES # 1.1 10^3/ul (0.8-2.9); MEAN CORPUSCULAR HEMOGLOBIN 30.7 pg (29.0-33.0); MEAN CORPUSCULAR HGB CONC 33.5 g/dl (32.0-37.0); MEAN CORPUSCULAR VOLUME 91.4 fl (82.0-101.0); MEAN PLATELET VOLUME 9.4 fl (7.4-10.4); MONOCYTE # 0.4 10^3/ul (0.3-0.9); MONOCYTES % 4.4 % (0.0-11.0); NEUTROPHILS % 77.1 % (39.0-77.0); PLATELET COUNT 314 10^3/UL (140-415); RED BLOOD COUNT 3.62 10^6/ul (4.20-5.40); RED CELL DISTRIBUTION WIDTH 12.5 % (11.5-14.5)
[2017-04-24 06:33] LABS: CALCIUM 8.9 mg/dl (8.4-10.2); CREATININE 0.68 mg/dl (0.44-1.00); POTASSIUM 3.8 mmol/L (3.5-5.1)
[2017-04-24] MEDS: MINERAL OIL 30ML CUP PO SCH ×3 (06:41→21:22)
[2017-04-24 08:20] VITALS: BP 133/81; RESP 18
[2017-04-24] MEDS: AMLODIPINE 10 MG TAB PO SCH (08:36)
[2017-04-24] MEDS: BISACODYL (EC) 5 MG TAB PO SCH ×2 (08:37→21:23)
[2017-04-24] MEDS: DOCUSATE SODIUM 100 MG CAP PO SCH ×2 (08:37→21:23)
[2017-04-24] MEDS: CYCLOBENZAPRINE 10 MG TAB PO SCH ×2 (08:37→21:23)
--- NOTE | 2017-04-24 08:56 | HP ---
DATE OF ADMISSION: 04/17/2017 REQUESTING PHYSICIAN: Jesus Nickerson MD Dear Dr. Nickerson, Thank you for asking me to see this patient in urological consultation. This is a 51-year-old female who underwent hemorrhoid surgery, was sent home; however, she came because she was in severe pain and also constipation. She was taken back to the operating room, did have disimpaction and rectal dilatation and rigid sigmoidoscopy. Postop, the patient had urinary retention and a Iraheta catheter was put in. When the catheter was removed, she was not able to urinate. Therefore, a urological consultation was requested. The patient denies having any urinary problem prior to her surgeries. PAST MEDICAL HISTORY: Unsignificant. PAST SURGICAL HISTORY: She does have a history of the recent hemorrhoid surgery and anal fissurectomy. Also, she had left shoulder rotator cuff tear repair, hysterectomy for fibroids. She is a 2, para 2, normal deliveries. ALLERGIES: THE PATIENT HAS NO KNOWN DRUG ALLERGIES. MEDICATIONS: The medications that she is presently on is: 1. Potassium chloride. 2. Dulcolax. 3. Mineral oil. 4. Colace. 5. Flexeril. 6. Toprol XL. 7. Norvasc. 8. Ampicillin sodium/sulbactam. 9. Morphine for the pain. 10. [place] for the pain p.r.n. PHYSICAL EXAMINATION: GENERAL: Reveals a 51-year-old female. VITAL SIGNS: She weighs 57.9 kg. She is 61 inches tall. She is afebrile. Temperature is 97.8. Pulse 75. Respirations 18. Blood pressure 103/69. HEENT: The head and neck are unremarkable. ABDOMEN: Soft. There is no abdominal mass palpable. The patient has an indwelling Iraheta catheter. No pelvic exam was done at this time because of the pain. Neither rectal exam was done. EXTREMITIES: Normal. LABORATORY DATA: Her CBC shows a white count of 8.0, hemoglobin 11.1, hematocrit 33.1. BUN is 4, creatinine is 0.68, electrolytes are normal. Urinalysis was negative. Abdominal x- ray showed moderate to large amount of formed stool in the left colon and findings may reflect constipation and that was done on April 21. The patient did have a CT scan on April 17 and that showed massive stool retention within the lower sigmoid colon and rectum with high grade constipation and obstipation associated proctitis. Proximal pseudoobstruction of the colon secondary to the high grade distal colonic constipation. IMPRESSION: The patient has urinary retention because of the constipation as well as the pain. She is feeling better now. She had a bowel movement yesterday. She had another small bowel movement this morning. The recommendation is to remove the Iraheta catheter now and see if she does void. If she does not void, then one could put the catheter in and send her home with the Iraheta catheter and the leg bag and she could followup with Dr. Lucas in about a week and have the catheter removed. Dictated By: Tien Kong MD /dom/domingo /Document#: [id number]
[2017-04-24] MEDS: POTASSIUM CHLORIDE 40 MEQ in SOD CHLORIDE 0.45% 980 ML IV SCH ×3 (11:00→23:30)
[2017-04-24] MEDS: PANTOPRAZOLE (EC) 40 MG TAB PO SCH (12:57)
[2017-04-24] MEDS ORDERED: PANTOPRAZOLE (EC) 40 MG TAB PO ONE (13:00)
[2017-04-24 14:00] VITALS: BP 101/64; RESP 16
--- NOTE | 2017-04-24 14:57 | PN ---
Date/Time of Note Date/Time of Note DATE: 04/24/17 TIME: 14:56 Assessment/Plan VTE Prophylaxis VTE Prophylaxis Intervention: SCD's Lines/Catheters IV [facility] Type (from [facility] Peripheral IV Urinary Cath still in place: No (dc'd today) Assessment/Plan Chief Complaint/Hosp Course 51-year-old female presenting with obstipation after hemorrhoidal surgical intervention. She had a course of GoLYTELY without improvement in the ER. She will be taken to the OR for manual disimpaction and anal dilatation. Problems: Assessment/Plan recommend dc home with mooney either today or tomorrow and f/u in office for mooney removal next week Subjective 24 Hr Interval Summary Free Text/Dictation seen by urology, appreciated input but we have attempted mooney removal multiple times with urinary retention Exam/Review of Systems Vital Signs Vitals Vital Signs Date Time Temp Pulse Resp B/P Pulse Ox O2 Delivery O2 Flow Rate FiO2 04/24/17 14:00 99.2 92 16 101/64 98 Intake and Output 04/23/17 04/23/17 04/24/17 15:00 23:00 07:00 Intake Total 265 ml 2285 ml 550 ml Output Total 3050 ml 900 ml Balance 265 ml -765 ml -350 ml Exam nonspecific, abd soft Results Result Diagram: 04/24/17 0539 04/24/17 0539 Results 24 hrs Laboratory Tests Test 04/24/17 05:39 White Blood Count 8.0 # Red Blood Count 3.62 L Hemoglobin 11.1 L Hematocrit 33.1 L Mean Corpuscular Volume 91.4 Mean Corpuscular Hemoglobin 30.7 Mean Corpuscular Hemoglobin Concent 33.5 Red Cell Distribution Width 12.5 Platelet Count 314 Mean Platelet Volume 9.4 Neutrophils % 77.1 H Lymphocytes % 14.0 L Monocytes % 4.4 Eosinophils % 3.1 Basophils % 0.4 Nucleated Red Blood Cells % 0.0 Neutrophils # (Manual) 6.2 Lymphocytes # 1.1 Monocytes # 0.4 Eosinophils # 0.3 Basophils # 0.0 Nucleated Red Blood Cells # 0.0 Sodium Level 141 Potassium Level 3.8 Chloride Level 106 Carbon Dioxide Level 28 Anion Gap 11 Blood Urea Nitrogen 4 L Creatinine 0.68 Glucose Level 81 Calcium Level 8.9 Medications Medications Current Medications Ampicillin Sodium/ Sulbactam Sodium (Unasyn 3gm/NS (Pmx)) 100 ml @ 200 mls/hr Q6 IVPB Last administered on 04/24/17 11:24; Admin Dose 200 MLS/HR; Start 04/17 at 20:00 Morphine Sulfate (morphine) 2 mg Q2H PRN IV PAIN LEVEL 6-10 Last administered on 04/20/17 17:49; Admin Dose 2 MG; Start 04/17/17 at 18:30 Amlodipine Besylate (Norvasc) 10 mg DAILY PO Last administered on 04/24/17 08: 36; Admin Dose 10 MG; Start 04/18/17 at 09:00 Metoprolol Succinate (Toprol Xl) 25 mg QPM PO Last administered on 04/22/17 20: 44; Admin Dose 25 MG; Start 04/18/17 at 21:00 Cyclobenzaprine HCl (Flexeril) 10 mg Q12 PO Last administered on 04/24/17 08:37 ; Admin Dose 10 MG; Start 04/19/17 at 21:00 Docusate Sodium (Colace) 100 mg BID PO Last administered on 04/24/17 08:37; Admin Dose 100 MG; Start 04/20/17 at 21:00 Mineral Oil (Mineral Oil) 30 ml Q8 PO Last administered on 04/24/17 13:37; Admin Dose 30 ML; Start 04/21/17 at 14:00 Bisacodyl 10 mg 10 mg BID PO Last administered on 04/24/17 08:37; Admin Dose 10 MG; Start 04/23/17 at 09:00 Potassium Chloride/Sodium Chloride (KCl/1/2 NS) 1,000 ml @ 80 mls/hr [id number] IV Last administered on 04/23/17 09:21; Admin Dose 80 MLS/HR; Start 04/23/17 at 10:00 Ketorolac Tromethamine (Toradol) 15 mg Q6H PRN IV PAIN; Start 04/24/17 at 13:00 ; Stop 04/27/17 at 12:59 Pantoprazole (Protonix Tab) 40 mg DAILY@06 PO ; Start 04/24/17 at 12:57 Ana OLSON Apr 24, 2017 14:57
--- NOTE | 2017-04-24 16:33 | RADRPT ---
PROCEDURE: XR Abdomen. CLINICAL INDICATION: Abdomen pain/abdomen distension. TECHNIQUE: AP abdomen x-ray. COMPARISON: KUB, 04/21/2017. FINDINGS: The bowel gas pattern is nonspecific. There is no evidence of obstruction. There are no abnormal c alcifications overlying the urinary tracts. The osseus structures are unremarkable. There is no fecal impaction along the colon. IMPRESSION: 1. Unremarkable abdomen radiograph. RPTAT: GG .Basil Power MD, MD Date Time Electronically viewed and signed by .Basil Power MD, on 04/24/2017 16:33 .Y/
--- NOTE | 2017-04-24 16:36 | PN ---
Date/Time of Note Date/Time of Note DATE: 04/24/17 TIME: 16:31 Assessment/Plan Lines/Catheters IV Catheter Type (from Nrsg): Peripheral IV Urinary Cath still in place: Yes Assessment/Plan Assessment/Plan -abdominal pain -Constipation-status post anal dilatation, fecal disimpaction, and rigid sigmoidoscopy. - PER SURGERY - pain management -Recent hemorrhoid surgery and anal fissurectomy. -urinary obstruction - -sp FC placement. Marcelo Nickerson Subjective 24 Hr Interval Summary Respiratory: no complaints Cardiovascular: no complaints Gastrointestinal: no complaints Genitourinary: no complaints Musculoskeletal: no complaints Skin: no complaints Neurologic: no complaints Exam/Review of Systems Vital Signs Vitals Vital Signs Date Time Temp Pulse Resp B/P Pulse Ox O2 Delivery O2 Flow Rate FiO2 04/24/17 14:00 99.2 92 16 101/64 98 Intake and Output 04/23/17 04/23/17 04/24/17 15:00 23:00 07:00 Intake Total 265 ml 2285 ml 550 ml Output Total 3050 ml 900 ml Balance 265 ml -765 ml -350 ml Exam Constitutional: alert, well developed Respiratory: clear to auscultation, normal air movement Cardiovascular: nl pulses, regular rate and rhythm Gastrointestinal: non-tender, soft Musculoskeletal: nl extremities to inspection Extremities: normal pulses Neurological: nl mental status, nl speech Results Result Diagram: 04/24/17 0539 04/24/17 0539 Results 24 hrs Laboratory Tests Test 04/24/17 05:39 White Blood Count 8.0 # Red Blood Count 3.62 L Hemoglobin 11.1 L Hematocrit 33.1 L Mean Corpuscular Volume 91.4 Mean Corpuscular Hemoglobin 30.7 Mean Corpuscular Hemoglobin Concent 33.5 Red Cell Distribution Width 12.5 Platelet Count 314 Mean Platelet Volume 9.4 Neutrophils % 77.1 H Lymphocytes % 14.0 L Monocytes % 4.4 Eosinophils % 3.1 Basophils % 0.4 Nucleated Red Blood Cells % 0.0 Neutrophils # (Manual) 6.2 Lymphocytes # 1.1 Monocytes # 0.4 Eosinophils # 0.3 Basophils # 0.0 Nucleated Red Blood Cells # 0.0 Sodium Level 141 Potassium Level 3.8 Chloride Level 106 Carbon Dioxide Level 28 Anion Gap 11 Blood Urea Nitrogen 4 L Creatinine 0.68 Glucose Level 81 Calcium Level 8.9 Medications Medications Current Medications Ampicillin Sodium/ Sulbactam Sodium (Unasyn 3gm/NS (Pmx)) 100 ml @ 200 mls/hr Q6 IVPB Last administered on 04/24/17 11:24; Admin Dose 200 MLS/HR; Start 04/17 at 20:00 Morphine Sulfate (morphine) 2 mg Q2H PRN IV PAIN LEVEL 6-10 Last administered on 04/20/17 17:49; Admin Dose 2 MG; Start 04/17/17 at 18:30 Amlodipine Besylate (Norvasc) 10 mg DAILY PO Last administered on 04/24/17 08: 36; Admin Dose 10 MG; Start 04/18/17 at 09:00 Metoprolol Succinate (Toprol Xl) 25 mg QPM PO Last administered on 04/22/17 20: 44; Admin Dose 25 MG; Start 04/18/17 at 21:00 Cyclobenzaprine HCl (Flexeril) 10 mg Q12 PO Last administered on 04/24/17 08:37 ; Admin Dose 10 MG; Start 04/19/17 at 21:00 Docusate Sodium (Colace) 100 mg BID PO Last administered on 04/24/17 08:37; Admin Dose 100 MG; Start 04/20/17 at 21:00 Mineral Oil (Mineral Oil) 30 ml Q8 PO Last administered on 04/24/17 13:37; Admin Dose 30 ML; Start 04/21/17 at 14:00 Bisacodyl 10 mg 10 mg BID PO Last administered on 04/24/17 08:37; Admin Dose 10 MG; Start 04/23/17 at 09:00 Potassium Chloride/Sodium Chloride (KCl/1/2 NS) 1,000 ml @ 80 mls/hr [id number] IV Last administered on 04/23/17 09:21; Admin Dose 80 MLS/HR; Start 04/23/17 at 10:00 Ketorolac Tromethamine (Toradol) 15 mg Q6H PRN IV PAIN; Start 04/24/17 at 13:00 ; Stop 04/27/17 at 12:59 Pantoprazole (Protonix Tab) 40 mg DAILY@06 PO ; Start 04/24/17 at 12:57 PEBBLES CARNES Apr 24, 2017 16:36
[2017-04-24] MEDS: KETOROLAC 15 MG INJ IV PRN (18:45)
[2017-04-24 20:15] VITALS: BP 100/58; RESP 16
[2017-04-24] MEDS: METOPROLOL (XL) 25 MG TAB PO SCH (21:23)
[2017-04-25] MEDS: AMPICILLIN/SULB 3 GM/NS (PMX) 100 ML IVPB SCH ×4 (01:01→18:55)
[2017-04-25] MEDS: KETOROLAC 15 MG INJ IV PRN ×4 (01:01→21:05)
[2017-04-25 02:00] VITALS: BP 103/62; RESP 18
[2017-04-25] MEDS: PANTOPRAZOLE (EC) 40 MG TAB PO SCH (05:28)
[2017-04-25] MEDS: POTASSIUM CHLORIDE 40 MEQ in SOD CHLORIDE 0.45% 980 ML IV SCH (05:28)
[2017-04-25] MEDS: MINERAL OIL 30ML CUP PO SCH ×2 (05:28→13:08)
[2017-04-25 06:09] LABS: BASOPHILS % 0.4 % (0.0-2.0); EOSINOPHILS # 0.1 10^3/ul (0.0-0.5); EOSINOPHILS % 2.7 % (0.0-7.0); HEMATOCRIT 32.1 % (37.0-47.0); HEMOGLOBIN 10.5 g/dl (12.0-16.0); LYMPHOCYTES # 1.7 10^3/ul (0.8-2.9); LYMPHOCYTES % 36.3 % (15.0-51.0); MEAN CORPUSCULAR HEMOGLOBIN 29.6 pg (29.0-33.0); MEAN CORPUSCULAR HGB CONC 32.7 g/dl (32.0-37.0); MEAN CORPUSCULAR VOLUME 90.4 fl (82.0-101.0); MEAN PLATELET VOLUME 9.3 fl (7.4-10.4); MONOCYTE # 0.5 10^3/ul (0.3-0.9); MONOCYTES % 10.8 % (0.0-11.0); NEUTROPHILS % 49.2 % (39.0-77.0); PLATELET COUNT 293 10^3/UL (140-415); RED BLOOD COUNT 3.55 10^6/ul (4.20-5.40); RED CELL DISTRIBUTION WIDTH 12.9 % (11.5-14.5); WHITE BLOOD COUNT 4.7 10^3/ul (4.8-10.8)
[2017-04-25 06:45] LABS: CALCIUM 8.7 mg/dl (8.4-10.2); CREATININE 0.59 mg/dl (0.44-1.00); POTASSIUM 3.9 mmol/L (3.5-5.1)
[2017-04-25 07:59] VITALS: BP 111/90; RESP 18
[2017-04-25] MEDS: CYCLOBENZAPRINE 10 MG TAB PO SCH ×2 (08:26→21:06)
[2017-04-25] MEDS: DOCUSATE SODIUM 100 MG CAP PO SCH ×2 (08:26→21:06)
[2017-04-25] MEDS: BISACODYL (EC) 5 MG TAB PO SCH ×2 (08:27→21:06)
[2017-04-25 14:00] VITALS: BP 115/65; RESP 18
--- NOTE | 2017-04-25 16:39 | PDOCDIS ---
Discharge Instructions CONDITION Patient Condition: Stable HOME CARE INSTRUCTIONS: Special Diet: SOFT ACTIVITY: Activity Restrictions: Slowly Increase Activity Rest between Activity Avoid heavy lifting Do not Drive Do not operate Machinery Do not operate Power Tool Avoid Heavy Housework Weight Bearing Bathing Restrictions: Sponge Bath FOLLOW UP/APPOINTMENTS Follow-up Plan FU with Primary MD X 1 WEEK FU with SURGERY as recommended. Call 911 or go to nearest hospital if symptoms get worse- patient verbalized understanding dc instructions. de Dr Nickerson/staff PEBBLES CARNES Apr 25, 2017 16:39
[2017-04-25] MEDS ORDERED: PANT40TA3 PO (16:42)
[2017-04-25] MEDS ORDERED: POLY17PO6 PO (16:42)
[2017-04-25] MEDS ORDERED: TRAM50TA2 PO (16:42)
[2017-04-25] MEDS ORDERED: PANT40TA4 PO (16:42)
[2017-04-25] MEDS ORDERED: CYCL-319 PO (16:57)
--- NOTE | 2017-04-25 17:00 | DS ---
Date/Time of Note Date/Time of Note DATE: 04/25/17 TIME: 17:00 Discharge Summary Admission/Discharge Info Admit Date/Time Apr 17, 2017 at 14:37 Discharge Date/Time Hx of Present Illness This is a 51-year-old female with increasing abdominal pain and cramping. She has been experiencing obstipation for the past 3 days. She underwent hemorrhoidal surgery approximately 3 days ago. She has been taking pain medication however she has not had a good bowel movement recently. CT scan showed obstipation with stool in the colon. In the ER she had GoLYTELY and did not have any major bowel movements. General surgery was consulted for manual disimpaction. Hospital Course -abdominal pain -Constipation-status post anal dilatation, fecal disimpaction, and rigid sigmoidoscopy. - PER SURGERY - pain management -Recent hemorrhoid surgery and anal fissurectomy. -urinary obstruction - try to remove mooney catheter again Home Meds Active Scripts Cyclobenzaprine Hcl* (Cyclobenzaprine Hcl*) 10 Mg Tablet, 5 MG PO Q12, #30 TAB Prov:PEBBLES CARNES 04/25/17 Pantoprazole* (Protonix*) 40 Mg Tablet., 40 MG PO DAILY, #20 TAB Prov:PEBBLES CARNES 04/25/17 Tramadol HCl (Tramadol HCl) 50 Mg Tablet, 50 MG PO Q6 Y for PAIN, #30 TAB Prov:PEBBLES CARNES 04/25/17 Polyethylene Glycol* (Miralax*) 17 Gm Powd.pack, 17 GM PO BID, #15 Prov:PEBBLES CARNES 04/25/17 Pantoprazole* (Pantoprazole*) 40 Mg Tablet., 40 MG PO DAILY@06 for 30 Days Prov:PEBBLES CARNES 04/25/17 Reported Medications Metoprolol Succinate* (Toprol XL*) 25 Mg Tab.sr.24h, 25 MG PO QPM, #30 TAB 04/14/17 Amlodipine Besylate* (Norvasc*) 10 Mg Tablet, 10 MG PO DAILY, TAB 04/14/17 Primary Care Provider Care Physician No Primary Pending Labs Laboratory Tests Test 04/25/17 05:34 White Blood Count 4.710^3/ul (4.8-10.8) Red Blood Count 3.5510^6/ul (4.20-5.40) Hemoglobin 10.5g/dl (12.0-16.0) Hematocrit 32.1% (37.0-47.0) Mean Corpuscular Volume 90.4fl (82.0-101.0) Mean Corpuscular Hemoglobin 29.6pg (29.0-33.0) Mean Corpuscular Hemoglobin Concent 32.7g/dl (32.0-37.0) Red Cell Distribution Width 12.9% (11.5-14.5) Platelet Count 63719^3/UL (140-415) Mean Platelet Volume 9.3fl (7.4-10.4) Neutrophils % 49.2% (39.0-77.0) Lymphocytes % 36.3% (15.0-51.0) Monocytes % 10.8% (0.0-11.0) Eosinophils % 2.7% (0.0-7.0) Basophils % 0.4% (0.0-2.0) Nucleated Red Blood Cells % 0.0/100WBC (0.0-0.0) Neutrophils # (Manual) 2.310^3/ul (1.7-7.5) Lymphocytes # 1.710^3/ul (0.8-2.9) Monocytes # 0.510^3/ul (0.3-0.9) Eosinophils # 0.110^3/ul (0.0-0.5) Basophils # 0.010^3/ul (0.0-0.1) Nucleated Red Blood Cells # 0.010^3/ul (0.0-0.0) Sodium Level 139mmol/L (135-144) Potassium Level 3.9mmol/L (3.5-5.1) Chloride Level 109mmol/L (97-110) Carbon Dioxide Level 26mmol/L (21-31) Anion Gap 8 (8-16) Blood Urea Nitrogen 5mg/dl (7-20) Creatinine 0.59mg/dl (0.44-1.00) Glucose Level 81mg/dl (70-220) Calcium Level 8.7mg/dl (8.4-10.2) PEBBLES CARNES Apr 25, 2017 17:00
[2017-04-25] MEDS ORDERED: CIPR500T4 PO (17:32)
[2017-04-25] MEDS: METOPROLOL (XL) 25 MG TAB PO SCH (21:07)
== END 2017-04-25 22:45 | disposition home or self-care (01) | DRG 392 ==
LOC: E/R 09:54 → MS2 14:37
PROVIDERS: ADMIT Internal Medicine; ATTEND Internal Medicine
PROC: 0DCQ7ZZ Extirpation of Matter from Anus, Via Natural or Artificial Opening (ICD-10-PCS; 2017-04-17)
PROC: 0DJD8ZZ Inspection of Lower Intestinal Tract, Via Natural or Artificial Opening Endoscopic (ICD-10-PCS; 2017-04-17)
PROC: 0D7Q7ZZ Dilation of Anus, Via Natural or Artificial Opening (ICD-10-PCS; principal; 2017-04-17 16:30)
DX: K59.00 Constipation, unspecified (principal); E87.0 Hyperosmolality and hypernatremia; E87.1 Hypo-osmolality and hyponatremia; I10 Essential (primary) hypertension; Z98.890 Other specified postprocedural states; E87.6 Hypokalemia; N13.9 Obstructive and reflux uropathy, unspecified
CPT/HCPCS: 36415; 74000; 74176; 80048; 80053; 81001; 83690; 85025; 85610; 87075; 87086; 96374; 96375; 96376; A4310; J0295; J0690; J1100; J1170; J1885; J2250; J2270; J2370; J2405; J3010; J3480; J7030; J7120; J7999

== ENCOUNTER 2017-09-10 13:28 | Day surgery (SDC) | END 2017-09-16 10:56 | disposition home or self-care (01) ==